=== PATIENT | female | born 1995 | race Caucasian/White ===

== ENCOUNTER → 2016-11-10 | Outpatient (REF) | payer OTHER ==
[~2016-11-10] MED LIST: SEASONAL; miralax
[2016-11-10 20:26] LABS: CONTROL LINE INT CTR LINE PRESENT; HIV SCRN NEGATIVE (NEGATIVE); HIV SCRN1 NEGATIVE (NEGATIVE)
== END ==
LOC: M SFHCPLAZ 11:42
PROVIDERS: ATTEND Nurse Practitioner Family
DX: Z11.3 Encounter for screening for infections with a predominantly sexual mode of transmission (principal)

== ENCOUNTER → 2016-12-15 | Outpatient (REF) | payer OTHER | LOC: M LAB REF 16:16 | PROVIDERS: ATTEND Physician Assistant | DX: H66.93 Otitis media, unspecified, bilateral (principal); J02.9 Acute pharyngitis, unspecified ==

== ENCOUNTER 2017-03-27 17:50 | Emergency (ER) | payer OTHER ==
[~2017-03-27] VITALS: Ht 170.2 cm; Wt 71.4 kg
[2017-03-27] MEDS ORDERED: AMOX500T PO (17:59)
--- NOTE | 2017-03-27 18:40 | REPUSA ---
CT of the head Clinical history: dizziness. Technique: Multiple axial CT images were obtained through the head without administration of contrast . Comparison: 12/20/2009. Findings: The ventricles and sulci are symmetric bilaterally. There is no evidence of acute hemorrhag e or infarct. There is no midline shift, mass effect, or extra-axial fluid collection. The osseous st ructures are unremarkable. The visualized paranasal sinuses and mastoid air cells are clear. Impression: Negative study.
[2017-03-27 18:53] LABS: MEAN CORPUSCULAR HEMOGLOBIN 31.6 pg (27.0-33.0); MEAN CORPUSCULAR HGB CONC 33.6 g/dl (32.0-36.5); MEAN CORPUSCULAR VOLUME 94.2 fl (80.0-96.0); RED CELL DISTRIBUTION WIDTH 11.6 % (11.5-14.5); WHITE BLOOD COUNT 8.8 K/mm3 (4.0-10.0)
[2017-03-27 18:59] LABS: INR 0.94
[2017-03-27 19:03] LABS: ANION GAP 5 MEQ/L (8-16); BLOOD UREA NITROGEN 13 MG/DL (7-18); CALCIUM LEVEL 8.8 MG/DL (8.5-10.1); CARBON DIOXIDE LEVEL 28 MEQ/L (21-32); CHLORIDE LEVEL 103 MEQ/L (98-107); CREATININE FOR GFR 0.87 MG/DL (0.55-1.02); GLOMERULAR FILTRATION RATE > 60.0 (>60); GLUCOSE, FASTING 82 MG/DL (70-105); POTASSIUM SERUM 3.9 MEQ/L (3.5-5.1); SODIUM LEVEL 136 MEQ/L (136-145)
[2017-03-27 19:48] VITALS: BP 116/76
== END 2017-03-27 20:08 | disposition home or self-care (01) ==
LOC: M ED 20:03
DX: H53.9 Unspecified visual disturbance (principal); Z79.3 Long term (current) use of hormonal contraceptives

== ENCOUNTER → 2017-05-31 | Outpatient (CLI) | payer OTHER, MEDICAID ==
[~2017-05-31] MED LIST changes: +AMOX500T PO; +ZOFR4TAB3 PO
--- NOTE | 2017-05-31 19:29 | REP ---
PA and lateral chest: Lung ferreira are clear. Cardiac size is normal. The ariel, mediastinum, bony thorax unremarkable except for thoracic scoliosis. Impression: Negative chest except for thoracic scoliosis. Signed by Charly Romero MD 05/31/2017 07:20 P
[2017-05-31 19:35] LABS: BASO % 0.5 % (0.0-1.0); EOS # 0.3 K/mm3 (0.0-0.50); EOS % 2.8 % (0.0-3.0); LARGE UNSTAINED CELL # 0.3 K/mm3 (0.0-0.4); LARGE UNSTAINED CELL % 2.7 % (0.0-4.0); LYMPH # 4.6 K/mm3 (1.5-6.5); LYMPH % 41.4 % (24.0-44.0); MEAN CORPUSCULAR HEMOGLOBIN 30.8 pg (27.0-33.0); MEAN CORPUSCULAR HGB CONC 33.6 g/dl (32.0-36.5); MEAN CORPUSCULAR VOLUME 91.7 fl (80.0-96.0); MONO # 0.7 K/mm3 (0.0-0.8); MONO % 7.1 % (0.0-5.0); NEUTROPHILS # 4.7 K/mm3 (1.8-7.7); NEUTROPHILS % 45.5 % (36.0-66.0); PLATELET COUNT, AUTOMATED 369 k/mm3 (150-450); RED CELL DISTRIBUTION WIDTH 11.8 % (11.5-14.5); WHITE BLOOD COUNT 10.4 K/mm3 (4.0-10.0)
[2017-05-31 20:10] LABS: ALBUMIN 3.9 GM/DL (3.2-5.2); ALBUMIN/GLOBULIN RATIO 1.11 (1.00-1.93); ALKALINE PHOSPHATASE 56 U/L (45-117); ALT/SGPT 21 U/L (12-78); ANION GAP 6 MEQ/L (8-16); AST/SGOT 14 U/L (15-37); BILIRUBIN,TOTAL 0.3 MG/DL (0.2-1.0); BLOOD UREA NITROGEN 11 MG/DL (7-18); CALCIUM LEVEL 8.5 MG/DL (8.5-10.1); CARBON DIOXIDE LEVEL 29 MEQ/L (21-32); CHLORIDE LEVEL 104 MEQ/L (98-107); CREATININE FOR GFR 0.78 MG/DL (0.55-1.02); GLOMERULAR FILTRATION RATE > 60.0 (>60); GLUCOSE, FASTING 89 MG/DL (70-105); POTASSIUM SERUM 3.8 MEQ/L (3.5-5.1); SODIUM LEVEL 139 MEQ/L (136-145); TOTAL PROTEIN 7.4 GM/DL (6.4-8.2)
== END ==
LOC: M WUC 18:44
PROVIDERS: ATTEND Physician Assistant
DX: R07.89 Other chest pain (principal)

== ENCOUNTER → 2017-06-04 | Outpatient (CLI) | payer OTHER, MEDICAID | LOC: M WUC 13:20 | PROVIDERS: ATTEND Physician Assistant | DX: N91.1 Secondary amenorrhea (principal) ==

== ENCOUNTER 2017-06-06 17:36 | Emergency (ER) | payer MEDICAID, OTHER ==
[~2017-06-06] VITALS: Ht 170.2 cm; Wt 70.5 kg
[~2017-06-06 17:36] MED LIST changes: -ZOFR4TAB3 PO
--- NOTE | 2017-06-06 18:41 | ECGEPIP ---
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
[2017-06-06 19:40] LABS: BASO # 0.1 K/mm3 (0.0-0.2); BASO % 0.6 % (0.0-1.0); EOS # 0.6 K/mm3 (0.0-0.50); EOS % 2.8 % (0.0-3.0); LARGE UNSTAINED CELL # 0.4 K/mm3 (0.0-0.4); LARGE UNSTAINED CELL % 2.1 % (0.0-4.0); LYMPH # 8.6 K/mm3 (1.5-6.5); LYMPH % 42.1 % (24.0-44.0); MEAN CORPUSCULAR HEMOGLOBIN 31.8 pg (27.0-33.0); MEAN CORPUSCULAR HGB CONC 33.6 g/dl (32.0-36.5); MEAN CORPUSCULAR VOLUME 94.5 fl (80.0-96.0); MONO # 1.6 K/mm3 (0.0-0.8); NEUTROPHILS # 8.6 K/mm3 (1.8-7.7); NEUTROPHILS % 44.3 % (36.0-66.0); PLATELET COUNT, AUTOMATED 407 k/mm3 (150-450); RED CELL DISTRIBUTION WIDTH 12.2 % (11.5-14.5); WHITE BLOOD COUNT 19.5 K/mm3 (4.0-10.0)
[2017-06-06] MEDS ORDERED: MORPHINE 2 MG/ML 1ML SYRINGE IV ONE (19:45)
[2017-06-06 19:50] LABS: ANION GAP 9 MEQ/L (8-16); BLOOD UREA NITROGEN 19 MG/DL (7-18); CALCIUM LEVEL 8.6 MG/DL (8.5-10.1); CARBON DIOXIDE LEVEL 28 MEQ/L (21-32); CHLORIDE LEVEL 104 MEQ/L (98-107); CREATININE FOR GFR 0.84 MG/DL (0.55-1.02); GLOMERULAR FILTRATION RATE > 60.0 (>60); GLUCOSE, FASTING 69 MG/DL (70-105); POTASSIUM SERUM 3.7 MEQ/L (3.5-5.1); SODIUM LEVEL 141 MEQ/L (136-145)
[2017-06-06] MEDS ORDERED: NS 1,000 ML IV ONE (20:30)
[2017-06-06] MEDS ORDERED: ISOVUE-370 76% 100ML VIAL (Q9967) As Ordered ONE (21:04)
--- NOTE | 2017-06-06 22:00 | REPUSA ---
CLINICAL HISTORY: Pain. TECHNIQUE: Multiple axial, coronal, sagittal CT images were obtained through the abdomen and pelvis after administration of intravenous contrast material. Oral contrast material was not administered. COMMENTS: The liver is of uniform attenuation without mass or defect. There is no intra or extrahepatic biliar y ductal dilatation. The spleen is normal. The gallbladder is contracted. The pancreas is of deanne l contour and attenuation characteristics. There is no evidence of adrenal mass. Both kidneys demonstrate prompt and equal nephrograms. The kidneys are normal in size, shape and con figuration. There is no evidence of renal or ureteral mass. No renal or ureteral calculi are identi fied. There is no hydroureter or hydronephrosis. No evidence for appendicitis. There is severe circumferential wall thickening involving fluid filled loops of small bowel, all segments involved. This is compatible with enteritis. Infectious and inf lammatory etiologies are considered. Consider consultation with GI service and follow-up with upper endoscopy. No evidence for small or large bowel obstruction. There is no evidence of abdominal asci janice or lymphadenopathy. 3 cm right ovarian cyst is seen and 1.7 cm left ovarian cyst is seen. The uterus is unremarkable. There is no evidence of intrinsic or extrinsic bladder mass. There is no pelvic ascites or lymphaden opathy. Images of the lung bases show no evidence of pleural or parenchymal mass. There are no pleural effus ions. The bony structures are free of lytic or blastic lesions. IMPRESSION: 1. Enteritis. Infectious and inflammatory etiologies are considered. Consider consultation with GI service and follow-up with upper endoscopy. 2. Bilateral ovarian cysts. Consider follow-up with pelvic ultrasound.
[2017-06-06] MEDS ORDERED: ZOFR4TAB3 PO (22:33)
[2017-06-06 22:37] VITALS: BP 132/69
--- NOTE | 2017-06-07 07:27 | REP ---
TWO-VIEW CHEST: REASON: Chest pain. COMPARISON: 05/31/2017 FINDINGS: The superior mediastinal structures are midline. The cardiac silhouette is unremarkable in size, shape, and position. The diaphragmatic surfaces of the lungs are regular, and the costophrenic angles are clear. The pulmonary ferreira are clear. The imaged osseous structures are intact. IMPRESSION: There is no acute cardiopulmonary disease. No change from the prior exam. Signed by Constantin Wade DO 06/07/2017 02:44 P
== END 2017-06-06 22:43 | disposition home or self-care (01) ==
LOC: M ED 17:36
DX: K52.9 Noninfective gastroenteritis and colitis, unspecified (principal); R06.02 Shortness of breath; N83.291 Other ovarian cyst, right side; N83.292 Other ovarian cyst, left side; Z79.3 Long term (current) use of hormonal contraceptives; Z82.49 Family history of ischemic heart disease and other diseases of the circulatory system
CPT/HCPCS: 71020; 74177; 80048; 81001; 81025; 85025; 93000; 96374; 99284; Q9967

== ENCOUNTER → 2017-06-08 | Outpatient (REF) | payer OTHER ==
[~2017-06-08] MED LIST changes: +ZOFR4TAB3 PO
[2017-06-08 13:24] LABS: BASO # 0.1 K/mm3 (0.0-0.2); BASO % 0.5 % (0.0-1.0); EOS # 0.4 K/mm3 (0.0-0.50); EOS % 2.9 % (0.0-3.0); LARGE UNSTAINED CELL # 0.2 K/mm3 (0.0-0.4); LARGE UNSTAINED CELL % 1.8 % (0.0-4.0); LYMPH % 30.4 % (24.0-44.0); MEAN CORPUSCULAR HGB CONC 33.5 g/dl (32.0-36.5); MEAN CORPUSCULAR VOLUME 92.5 fl (80.0-96.0); MONO # 0.6 K/mm3 (0.0-0.8); MONO % 4.9 % (0.0-5.0); NEUTROPHILS # 7.3 K/mm3 (1.8-7.7); NEUTROPHILS % 59.6 % (36.0-66.0); PLATELET COUNT, AUTOMATED 354 k/mm3 (150-450); RED CELL DISTRIBUTION WIDTH 12.1 % (11.5-14.5); WHITE BLOOD COUNT 12.3 K/mm3 (4.0-10.0)
== END ==
LOC: M SFHCPLAZ 10:58
PROVIDERS: ATTEND Family Medicine
DX: N92.6 Irregular menstruation, unspecified (principal)

== ENCOUNTER → 2017-12-21 | Outpatient (REF) | payer BC ==
[2017-12-21 13:57] LABS: CHLAMYDIA DNA AMPLIFICATION NEGATIVE (NEGATIVE); GC DNA AMPLIFICATION NEGATIVE (NEGATIVE)
== END ==
LOC: M SFHCWAGY 11:44
DX: N93.9 Abnormal uterine and vaginal bleeding, unspecified (principal)
CPT/HCPCS: 87591

== ENCOUNTER → 2017-12-27 | Outpatient (CLI) | payer BC | LOC: M WHC 13:52 | DX: Z87.42 Personal history of other diseases of the female genital tract (principal); R10.2 Pelvic and perineal pain ==

== ENCOUNTER 2018-01-10 18:16 | Emergency (ER) | payer BC ==
[2018-01-10] MEDS: ONDANSETRON 4 MG ORAL DISINTEGRATING TAB (S0181) PO (20:15)
[2018-01-10] MEDS: METHOCARBAMOL 500 MG TAB PO (20:15)
[2018-01-10] MEDS: KETOROLAC 60 MG/2 ML VIAL (J1885) IM (20:15)
== END 2018-01-10 20:57 | disposition home or self-care (01) ==
LOC: M ED 18:16
DX: G44.209 Tension-type headache, unspecified, not intractable (principal); S16.1XXA Strain of muscle, fascia and tendon at neck level, initial encounter; X58.XXXA Exposure to other specified factors, initial encounter; Y92.89 Other specified places as the place of occurrence of the external cause; Z79.899 Other long term (current) drug therapy; Z79.82 Long term (current) use of aspirin
CPT/HCPCS: J1885

== ENCOUNTER 2018-01-12 12:26 | Emergency (ER) | payer BC ==
[2018-01-12] MEDS: KETOROLAC TROMETHAMINE 10 MG TAB PO (13:55)
== END 2018-01-12 15:35 | disposition home or self-care (01) ==
LOC: M ED 12:26
DX: R51 Headache (principal); M54.2 Cervicalgia; Z79.899 Other long term (current) drug therapy
CPT/HCPCS: 70450

== ENCOUNTER → 2018-02-18 | Outpatient (REF) | payer BC | LOC: M SFHCWAGY 14:23 | DX: Z12.4 Encounter for screening for malignant neoplasm of cervix (principal); R87.610 Atypical squamous cells of undetermined significance on cytologic smear of cervix (ASC-US) | CPT/HCPCS: G0123 ==

== ENCOUNTER → 2018-02-22 | Outpatient (REF) | payer BC | LOC: M SFHCPLAZ 16:56 | DX: L81.9 Disorder of pigmentation, unspecified (principal) | CPT/HCPCS: 88305 ==

== ENCOUNTER → 2018-09-17 | Outpatient (REF) | payer BC | LOC: M SFHCPLAZ 16:27 | DX: L65.0 Telogen effluvium (principal); Z53.9 Procedure and treatment not carried out, unspecified reason ==

== ENCOUNTER → 2018-10-01 | Outpatient (REF) | payer BC ==
[~2018-10-01] MED LIST changes: +EXCETAB80 PO; +IBUP-1022 PO; +IBUP80TA PO; +MOBI4TAB PO; +PRED20TA PO; +ROBA500T PO; +TRINTAB3 PO; +TYLE325T5 PO; +ZOFR4TAB14 PO; -ZOFR4TAB3 PO
[2018-10-01 13:43] LABS: HEMATOCRIT 41.2 % (36.0-47.0); HEMOGLOBIN 13.5 g/dl (12.0-15.5); MEAN CORPUSCULAR HGB CONC 32.8 g/dl (32.0-36.5); MEAN CORPUSCULAR VOLUME 94.5 fl (80.0-96.0); PLATELET COUNT, AUTOMATED 330 10^3/uL (150-450); RED BLOOD COUNT 4.36 10^6/uL (4.00-5.40); WHITE BLOOD COUNT 8.2 10^3/uL (4.0-10.0)
[2018-10-01 14:05] LABS: ALBUMIN 3.9 GM/DL (3.2-5.2); ALT/SGPT 25 U/L (12-78); BILIRUBIN,TOTAL 0.6 MG/DL (0.2-1.0); BLOOD UREA NITROGEN 12 MG/DL (7-18); CALCIUM LEVEL 8.8 MG/DL (8.5-10.1); CARBON DIOXIDE LEVEL 26 MEQ/L (21-32); CHLORIDE LEVEL 104 MEQ/L (98-107); CREATININE FOR GFR 0.79 MG/DL (0.55-1.30); FERRITIN 21 NG/ML (8-252); FREE T4 0.92 NG/DL (0.76-1.46); GLOMERULAR FILTRATION RATE > 60.0 (>60); GLUCOSE, FASTING 87 MG/DL (70-100); POTASSIUM SERUM 4.5 MEQ/L (3.5-5.1); SODIUM LEVEL 138 MEQ/L (136-145); TOTAL PROTEIN 7.1 GM/DL (6.4-8.2)
== END ==
LOC: M SFHCPLAZ 09:09 → M SFHCADAM 09:10
PROVIDERS: ATTEND Family Medicine
DX: L65.0 Telogen effluvium (principal)

== ENCOUNTER → 2018-12-31 | Outpatient (REF) | payer BC ==
[~2018-12-31] MED LIST changes: +TRINTAB PO; -TRINTAB3 PO
[2018-12-31 13:16] LABS: BASO # 0.1 10^3/uL (0.0-0.2); BASO % 0.7 % (0.0-1.0); EOS # 0.2 10^3/uL (0.0-0.50); EOS % 2.9 % (0.0-3.0); HEMATOCRIT 40.9 % (36.0-47.0); HEMOGLOBIN 13.3 g/dl (12.0-15.5); LYMPH # 2.7 10^3/uL (1.5-6.5); LYMPH % 38.7 % (24.0-44.0); MEAN CORPUSCULAR HGB CONC 32.5 g/dl (32.0-36.5); MEAN CORPUSCULAR VOLUME 95.3 fl (80.0-96.0); MONO # 0.7 10^3/uL (0.0-0.8); MONO % 10.3 % (0.0-5.0); NEUTROPHILS # 3.2 10^3/uL (1.8-7.7); NEUTROPHILS % 47.1 % (36.0-66.0); PLATELET COUNT, AUTOMATED 319 10^3/uL (150-450); RED BLOOD COUNT 4.29 10^6/uL (4.00-5.40); WHITE BLOOD COUNT 6.9 10^3/uL (4.0-10.0)
[2018-12-31 13:59] LABS: ERYTHROCYTE SEDIMENTATION RATE 6 mm/hr (0-20)
[2018-12-31 14:11] LABS: ALBUMIN 4.1 GM/DL (3.2-5.2); ALT/SGPT 17 U/L (12-78); BILIRUBIN,TOTAL 0.4 MG/DL (0.2-1.0); BLOOD UREA NITROGEN 17 MG/DL (7-18); CALCIUM LEVEL 8.5 MG/DL (8.5-10.1); CARBON DIOXIDE LEVEL 22 MEQ/L (21-32); CHLORIDE LEVEL 109 MEQ/L (98-107); CREATININE FOR GFR 0.76 MG/DL (0.55-1.30); GLOMERULAR FILTRATION RATE > 60.0 (>60); GLUCOSE, FASTING 91 MG/DL (70-100); RHEUMATOID FACTOR QUANT < 10.0 IU/ML (<15.0); SODIUM LEVEL 139 MEQ/L (136-145); TOTAL 25(OH) VITAMIN D 34.4 NG/ML (30.0-100.0); TOTAL PROTEIN 7.8 GM/DL (6.4-8.2)
[2019-01-01 11:22] LABS: ANTINUCLEAR ANTIBODIES DIRECT Negative (Negative)
== END ==
LOC: M LABDRWAD 12:20
PROVIDERS: ATTEND Psychiatry & Neurology Neurology
DX: R51 Headache (principal)

== ENCOUNTER 2019-04-12 22:00 | Emergency (ER) | payer BC ==
[~2019-04-12] VITALS: Ht 170.2 cm; Wt 68.2 kg
[2019-04-12] MEDS ORDERED: TOPI200T7 PO (22:04)
[2019-04-12 23:03] VITALS: BP 105/55
[2019-04-12] MEDS ORDERED: NS 1,000 ML IV ONE (23:30)
[2019-04-12 23:35] LABS: HEMATOCRIT 37.9 % (36.0-47.0); HEMOGLOBIN 12.9 g/dl (12.0-15.5); PLATELET COUNT, AUTOMATED 318 10^3/uL (150-450); RED BLOOD COUNT 4.03 10^6/uL (4.00-5.40); WHITE BLOOD COUNT 10.2 10^3/uL (4.0-10.0)
[2019-04-12 23:48] LABS: ALBUMIN 3.6 GM/DL (3.2-5.2); BILIRUBIN,DIRECT 0.1 MG/DL (0.0-0.2); BILIRUBIN,TOTAL 0.3 MG/DL (0.2-1.0); TOTAL PROTEIN 7.2 GM/DL (6.4-8.2)
[2019-04-13] MEDS ORDERED: ONDANSETRON 4MG/2ML VIAL (J2405) IV ONE
[2019-04-13] MEDS ORDERED: KETOROLAC 30 MG/ML VIAL (J1885) IV ONE
[2019-04-13 00:04] LABS: ATYPICAL LYMPH 4 % (0-5); EOSINOPHILS 2 % (0-5); LYMPHOCYTES 49 % (16-52); MONOCYTES 9 % (0-8); NEUTROPHILS 36 % (35-75)
[2019-04-13 00:05] LABS: PLATELET ESTIMATE NORMAL (NORMAL)
--- NOTE | 2019-04-13 00:59 | REPVR ---
EXAM: US Pelvis Complete, Transabdominal and US Pelvis, Transvaginal and US Duplex Artery and Vein, Ovaries, Complete EXAM DATE/TIME: 04/12/2019 12:06 AM CLINICAL HISTORY: 24 years old, female; Pelvic pain; Additional info: Pubic pain cramps and sharp pain during intercourse TECHNIQUE: Imaging protocol: Real-time transabdominal and transvaginal pelvic ultrasound (complete) with image documentation. Transvaginal imaging was used for better evaluation of the endometrium and adnexa. Real-time duplex ultrasound scan of the arterial and venous flow of the ovaries with B-mode, color Doppler flow and spectral waveform analysis. COMPARISON: PELVIS NON-OB COMPLETE US 12/27/2017 2:03 PM FINDINGS: Uterus/cervix: Uterus measures 8.5 x 3.3 x 5 cm. Endometrial stripe is 6 mm. Nabothian cysts. Right adnexa: Right ovary measures 3.2 x 4 x 3.3 cm. There is a 2.4 x 2.7 x 2.8 cm right ovarian cyst containing internal low level echoes. Normal arterial and venous waveforms. Left adnexa: Left ovary measures 3.7 x 2.3 x 3 cm. There is a complex 2 x 2 x 1 cm left ovarian cyst containing internal low level echoes. Normal arterial and venous waveforms. Free fluid: Small amount of free fluid in the pelvis. Bladder: Normal. IMPRESSION: No evidence of ovarian torsion bilaterally. Complex bilateral ovarian cysts with small amount of free fluid in the pelvis. Electronically signed by: Jassi Broussard On 04/13/2019 00:59:26 AM
[2019-04-13] MEDS ORDERED: KETO10TAB PO (01:51)
--- NOTE | 2019-04-14 13:34 | ED PDOC ---
Post-Departure Follow-Up dr haley sanches faxed formal report of pelvic us for fu Jeri Zfaar MD Apr 14, 2019 13:34
== END 2019-04-13 02:04 | disposition home or self-care (01) ==
LOC: M ED 22:00
DX: N83.201 Unspecified ovarian cyst, right side (principal); N83.202 Unspecified ovarian cyst, left side; R10.2 Pelvic and perineal pain; R11.0 Nausea; R51 Headache; Z79.899 Other long term (current) drug therapy
CPT/HCPCS: 36415; 76830; 76856; 80047; 80076; 81001; 83690; 84702; 85025; 93976; 96361; 96374; 96375; 99284; J1885; J2405

== ENCOUNTER → 2019-05-20 | Outpatient (REF) | payer BC ==
[~2019-05-20] MED LIST changes: +KETO10TAB PO; +TOPI200T7 PO
[2019-05-22 14:51] LABS: HPV HYBRID CAPTURE II Negative (Negative)
== END ==
LOC: M SFHCWAGY 11:37
PROVIDERS: ATTEND Nurse Practitioner Family
DX: Z12.4 Encounter for screening for malignant neoplasm of cervix (principal)
CPT/HCPCS: 87624; G0123

== ENCOUNTER → 2019-05-29 | Outpatient (CLI) | payer BC ==
--- NOTE | 2019-05-29 12:14 | REP ---
REASON FOR EXAM: History of bilateral complex appearing ovarian cysts. COMPARISON: 04/13/2019. Transvesical and transvaginal imaging was obtained. The uterus measures 9.3 x 3.1 x 4.4 cm. The parenchymal echo pattern is unchanged from the prior exam. The endometrial echo complex has a maximal thickness of 7 mm. There is fluid in the cervical canal. Incidental note is made of nabothian cysts. The right ovary measures 4.2 x 2.5 x 3.7 cm. Within the right ovary, there is a 2.7 x 1.8 x 2.6 cm size anechoic structure, which is either singularly thinly septated or is abutting a small partially compressed cyst. There are no mural nodules or papillary projections. Left ovary measures 3.8 x 2.0 x 2.6 cm and is within normal limits. Urinary bladder measures 5.6 x9.6 x 5.6 cm. IMPRESSION: 1. Left ovary is now seen to be normal. 2. Right ovarian cyst as described above. This has gotten slightly smaller compared to the prior exam. Consider additional followup.
== END ==
LOC: M WHC 10:29
PROVIDERS: ATTEND Nurse Practitioner Family
DX: N83.201 Unspecified ovarian cyst, right side (principal); N83.202 Unspecified ovarian cyst, left side

== ENCOUNTER 2019-08-25 11:30 | Emergency (ER) | payer BC ==
[~2019-08-25] VITALS: Ht 170.2 cm; Wt 75.0 kg
[2019-08-25] MEDS ORDERED: prenatal (11:35)
[2019-08-25] MEDS ORDERED: NS 1,000 ML IV ONE (12:00)
[2019-08-25] MEDS ORDERED: ONDANSETRON 4MG/2ML VIAL (J2405) IV ONE (12:00)
[2019-08-25] MEDS ORDERED: ONDA4TAB6 PO (13:16)
[2019-08-25 14:22] VITALS: BP 113/64
== END 2019-08-25 14:27 | disposition home or self-care (01) ==
LOC: M ED 11:30
DX: O21.9 Vomiting of pregnancy, unspecified (principal); Z3A.01 Less than 8 weeks gestation of pregnancy
CPT/HCPCS: 80047; 96360; 96374; 99284; J2405

== ENCOUNTER → 2019-09-29 | Outpatient (REF) | payer BC ==
[~2019-09-29] MED LIST changes: +ONDA4TAB6 PO; +prenatal
[2019-09-29 17:41] LABS: HEMATOCRIT 38.9 % (36.0-47.0); MEAN CORPUSCULAR HEMOGLOBIN 30.8 pg (27.0-33.0); MEAN CORPUSCULAR HGB CONC 33.4 g/dl (32.0-36.5); MEAN CORPUSCULAR VOLUME 92.2 fl (80.0-96.0); PLATELET COUNT, AUTOMATED 339 10^3/uL (150-450); RED BLOOD COUNT 4.22 10^6/uL (4.00-5.40)
[2019-09-29 19:11] LABS: CHLAMYDIA DNA AMPLIFICATION NEGATIVE (NEGATIVE); GC DNA AMPLIFICATION NEGATIVE (NEGATIVE)
[2019-09-29 21:28] LABS: HIV 1&2 SCREEN CENTAUR NEGATIVE (NEGATIVE); RUBELLA IgG QUALITATIVE IMMUNE (IMMUNE)
[2019-10-01 13:31] LABS: HEPATITIS B SURFACE ANTIGEN NEGATIVE (NEGATIVE); HEPATITIS C VIRUS ABY INDEX 0.2 INDEX (<0.8)
== END ==
LOC: M PLALAB 15:18
PROVIDERS: ATTEND Advanced Practice Midwife
DX: Z33.1 Pregnant state, incidental (principal)

== ENCOUNTER → 2019-11-18 | Outpatient (CLI) | payer BC ==
--- NOTE | 2019-11-19 05:27 | REP ---
Clinical: Anatomical evaluation. Comparison: None . Findings: Examination demonstrates a single live intrauterine in cephalic presentation. motion is identified by technologist. Placenta is noted posterior and grade zero without evidence for placenta previa or abruption. Amniotic fluid volume is normal. Cervix measures 3.2 cm in length and appears closed. No evidence for nuchal cord. Gestational age by current measurements 18 weeks 4 days with JULIO CÉSAR 04/16/2020 . FHR equals 135 beats per minute. BPD 4.4 cm 19 weeks 2 days HC 15.9 cm 18 weeks 5 days AC 12.3 cm 18 weeks 0 days FL 2.9 cm 18 weeks 6 days HL 2.8 cm 19 weeks 0 days HC/AC ratio 1.29 Estimated weight 241 grams ( 40th percentile). Anatomical assessment demonstrates normal structures including cranium, choroid plexus, cavum, cerebellum/posterior fossa, lungs, four-chamber heart/ left ventricular outflow tract, diaphragm, stomach, cord insertion/three-vessel cord, kidneys/bladder, spine, and extremities. Impression: 1. Single live intrauterine in cephalic presentation. 2. Limited evaluation of the facial features and right cardiac ventricular outflow tract. Remainder of the anatomical assessment is complete and normal.
== END ==
LOC: M WHC 09:57
PROVIDERS: ATTEND Advanced Practice Midwife
DX: Z34.82 Encounter for supervision of other normal pregnancy, second trimester (principal)

== ENCOUNTER → 2019-12-17 | Outpatient (REF) | payer BC | LOC: M PLALAB 11:35 | PROVIDERS: ATTEND Obstetrics & Gynecology | DX: Z34.92 Encounter for supervision of normal pregnancy, unspecified, second trimester (principal) ==

== ENCOUNTER → 2020-01-01 | Outpatient (CLI) | payer BC ==
--- NOTE | 2020-01-01 19:52 | REP ---
Clinical: Anatomical evaluation. Comparison: 11/18/2019 . Findings: Examination demonstrates a single live intrauterine in cephalic presentation. motion is identified by technologist. Placenta is noted posterior and grade I without evidence for placenta previa or abruption. Amniotic fluid volume is normal. Cervix measures 3.7 cm in length and appears closed. No evidence for nuchal cord. Gestational age by LMP 24 weeks 6 days with JULIO CÉSAR 04/16/2020 . Gestational age by current measurements 25 weeks 6 days with JULIO CÉSAR 04/23/2020 . FHR equals 134 beats per minute. Estimated weight 955 grams ( 94th percentile). Anatomical assessment demonstrates normal structures including cranium, choroid plexus, cavum, cerebellum/posterior fossa, facial features, lungs, four-chamber heart/ventricular outflow tracts, diaphragm, stomach, cord insertion/three-vessel cord, kidneys/bladder, spine, and extremities. Impression: Single live intrauterine in cephalic presentation demonstrating appropriate interval growth. Anatomical assessment is complete and normal. No gross abnormalities are identified. Electronically Signed by Stalin Mariscal MD 01/01/2020 07:44 P
== END ==
LOC: M WHC 08:57
PROVIDERS: ATTEND Obstetrics & Gynecology
DX: Z34.92 Encounter for supervision of normal pregnancy, unspecified, second trimester (principal)

== ENCOUNTER → 2020-01-16 | Outpatient (REF) | payer BC ==
[2020-01-16 17:50] LABS: HEMATOCRIT 36.7 % (36.0-47.0); HEMOGLOBIN 12.1 g/dl (12.0-15.5); MEAN CORPUSCULAR HEMOGLOBIN 31.3 pg (27.0-33.0); MEAN CORPUSCULAR VOLUME 95.1 fl (80.0-96.0); PLATELET COUNT, AUTOMATED 315 10^3/uL (150-450); RED BLOOD COUNT 3.86 10^6/uL (4.00-5.40); WHITE BLOOD COUNT 15.6 10^3/uL (4.0-10.0)
== END ==
LOC: M PLALAB 14:37
PROVIDERS: ATTEND Obstetrics & Gynecology
DX: Z34.92 Encounter for supervision of normal pregnancy, unspecified, second trimester (principal); Z3A.00 Weeks of gestation of pregnancy not specified

== ENCOUNTER → 2020-03-24 | Outpatient (REF) | payer BC | LOC: M PLALAB 09:42 | PROVIDERS: ATTEND Advanced Practice Midwife | DX: O99.213 Obesity complicating pregnancy, third trimester (principal) ==

== ENCOUNTER → 2020-03-30 | Outpatient (CLI) | payer BC ==
--- NOTE | 2020-03-30 10:02 | REP ---
Clinical: Anatomical evaluation. Comparison: 01/01/2020. Findings: Examination demonstrates a single live intrauterine in cephalic presentation. motion is identified by technologist. Placenta is noted the posterior and grade I I without evidence for placenta previa or abruption. Amniotic fluid volume is normal. Cervix measures 3.3 cm in length and appears closed. No evidence for nuchal cord. Gestational age by LMP 37 weeks 4 days with JULIO CÉSAR 04/16/2020 . Gestational age by current measurements 38 weeks 5 days with JULIO CÉSAR 04/08/2020 . FHR equals 143 beats per minute. Estimated weight by current biometrical measurements 3689 grams ( 82nd percentile). Amniotic fluid index: 10.3 cm Impression: Single live advanced gestation in cephalic presentation demonstrating appropriate estimated weight and interval growth.
== END ==
LOC: M WHC 09:04
PROVIDERS: ATTEND Advanced Practice Midwife
DX: O26.849 Uterine size-date discrepancy, unspecified trimester (principal)

== ENCOUNTER → 2020-04-12 | Outpatient (REF) | payer BC ==
[~2020-04-12] MED LIST changes: +MIRA3350 PO; +OXYC1TAB23 PO; +ZYRTTAB8 PO
[2020-04-12 15:57] LABS: ALT/SGPT 23 U/L (12-78); BILIRUBIN,TOTAL 0.4 MG/DL (0.2-1.0); CREATININE FOR GFR 0.62 MG/DL (0.55-1.30); GLOMERULAR FILTRATION RATE > 60.0 (>60); LDH LACTATE DEHYDROGENASE 223 U/L (84-246); URIC ACID 3.8 MG/DL (2.6-6.0)
[2020-04-12 16:00] LABS: HEMATOCRIT 34.5 % (36.0-47.0); HEMOGLOBIN 11.1 g/dl (12.0-15.5); MEAN CORPUSCULAR HEMOGLOBIN 30.2 pg (27.0-33.0); MEAN CORPUSCULAR HGB CONC 32.2 g/dl (32.0-36.5); PLATELET COUNT, AUTOMATED 469 10^3/uL (150-450); RED BLOOD COUNT 3.67 10^6/uL (4.00-5.40); WHITE BLOOD COUNT 15.2 10^3/uL (4.0-10.0)
[2020-04-12 16:13] LABS: TOTAL PROTEIN,RANDOM URINE 22.1 MG/DL (0.0-12.0)
== END ==
LOC: M PLALAB 11:51
PROVIDERS: ATTEND Advanced Practice Midwife
DX: O13.3 Gestational [pregnancy-induced] hypertension without significant proteinuria, third trimester (principal); Z3A.00 Weeks of gestation of pregnancy not specified

== ENCOUNTER 2020-04-16 09:48 | Inpatient (IN) | payer BC ==
[~2020-04-16] VITALS: Ht 170.2 cm; Wt 95.1 kg
[2020-04-16] VITALS (8 sets, daily range): BP systolic 114–133; BP diastolic 58–91
[~2020-04-16 09:48] MED LIST changes: -MIRA3350 PO; -OXYC1TAB23 PO; -ZYRTTAB8 PO
[2020-04-16] MEDS ORDERED: MIRA3350 PO (10:14)
[2020-04-16] MEDS ORDERED: ZYRTTAB8 PO (10:14)
[2020-04-16] MEDS ORDERED: LACTATED RINGER'S 1000 ML IV STA (10:33)
[2020-04-16 11:09] LABS: HEMATOCRIT 35.2 % (36.0-47.0); HEMOGLOBIN 11.5 g/dl (12.0-15.5); MEAN CORPUSCULAR HGB CONC 32.7 g/dl (32.0-36.5); MEAN CORPUSCULAR VOLUME 91.9 fl (80.0-96.0); PLATELET COUNT, AUTOMATED 455 10^3/uL (150-450); RED BLOOD COUNT 3.83 10^6/uL (4.00-5.40); WHITE BLOOD COUNT 17.8 10^3/uL (4.0-10.0)
--- NOTE | 2020-04-16 11:26 | HPEPDOC ---
Obstetrical History & Physical General Date of Admission Apr 16, 2020 at 09:48 History of Present Illness Chief Complaint: Induction of labor (Gestational hypertension) Information Provided By: Patient Age: 25 : 1 Term: 0 Pre-term: 0 Abortions: 0 Livin Dating Final EDC: Apr 19, 2020 Final EDC by: LMP EGA at Admission: 39 (+4) Antepartum Course Height (inches): 66 Pre- weight (lbs.): 166 Admission Weight (lbs.): 211.4 Past Medical History Past Obstetrical History : Past Obstetrical History: Primgravida FO[employer] CHECKER History: Abnormal Pap, Human papillomavirus(HPV) Past Medical History Medical History mono, headaches Surgical History: Tonsilectomy, Simon teeth Family History Significant Family History: Cancer (uterine, colon, melanoma), Diabetes, Heart disease, Renal disease Social History Marital Status: Other (life partner) Family situation: Spouse/partner home Psychosocial History: No pertinent psych hx * Smoker: non-smoker Alcohol: Denies Drugs: denies Abuse Violence Screening Have you been hit/kicked/slapp: No Have you been sexually assault: No Imunizations Tdap status: current Allergies Coded Allergies: latex (Verified Adverse Reaction, Mild, redness, itchiness, condoms, 04/16/20) Medications Scheduled Cetirizine HCl/Pseudoephedrine (Zyrtec-D Tablet) 1 Each Tab.er.12h, 1 TAB PO DAILY for allergy symptoms Polyethylene Glycol 3350 (Miralax) 119 Gm Powder, 17 GRAM PO DAILY for constipation dissolve in water Scheduled PRN Ondansetron (Ondansetron Odt) 4 Mg Tab.rapdis, 4 MG PO Q6-8HP PRN for nausea/vomiting Miscellaneous Medications [] Physical Examination Physical Examination GENERAL: Alert and oriented times three. BREAST: . ABDOMEN: Gravid and non-tender to touch. FETUS: Is vertex (VTX) by sterile vaginal examination (SVE), fetus is vertex (VTX) by Phan. EFW 8.5-9# HEART RATE: Regular rate and rhythm. LUNGS: Clear to auscultation (CTA). EXTREMITIES: No edema. No clonus. Deep tendon reflexes (DTRs) + 2. Laboratory Data 24H LABS Laboratory Tests 2 04/16/20 09:56: Serology Scanned Report Hepatitis B Testing Pertinent Laboratoy Data Blood Type: A+ RBC Antibody Screen: Negative HIV: Negative Hepatitis B: Negative Hepatitis C: Negative Rapid Plasma Reagin: Nonreactive Rubella: Immune Chlamydia/Gonorrhea: Negative Group B Streptococcus: Negative Quad Screen Test: Declined Glucose Tolerance Test: 95 Diag/Inter Therapy Panorama low risk male Anatomy Ultrasound Ultrasound Date: Nov 18, 2019 Placenta Location: Posterior Normal Anatomy: Yes Placenta Previa: No Estimated Weight (grams): 241 (40%) Other Ultrasounds 09/01/2019 dating 7w5d 01/01/2020 F/U anatomy. remainder anatomy WNL. EFW 955gm, 94% 03/30/2020 growth Cephalic. EFW 3689gm, 82%. TATO 10.3cm Steroid Therapy Steroid Therapy: No Vaginal Examination Dilation: Fingertip Effacement: 50% Station: -2 Cervical Consistency: Soft Cervical Position: Posterior Presentation: Cephalic presentation Assessment Heart Rate (FHR): 145 Variability: Moderate Accelerations: Positive Decelerations: None Tocometer Frequency: irregular Strength: palpated as mild (not regularly perceived by patient) Assessment/Plan Assessment Monica is a 25-year-old (G)1 para (P)0-0-0-0 at 39+4 weeks by 7-week ultrasound. Presents to Labor and Delivery (L&D) induction of labor due to gestational hypertension. Reports mild irregular contractions. Denies LOF, bleeding. Reports good activity. Plan Admit and orient per consult Dr Munoz Lockstitch Sleeve Maker and consent. Diet: Regular. Group B Streptococcus (GBS) negative. Labs and intravenous (IV) per unit protocol. Counseled on misoprostol, Pitocin and induction of labor (IOL). Lactated Ringers (LR): Bolus 500 mL, then saline lock. Plans to labor ad abbie, open to epidural. Anticipate normal spontaneous delivery (). C-S as appropriate. Elisa Andre CNM Apr 16, 2020 10:33
[2020-04-16] MEDS: ONDANSETRON 4MG/2ML VIAL IV SCH (11:38)
[2020-04-16] MEDS: miSOPROStol 50 MCG 1/2 TAB (S0191) PO SCH ×3 (11:38→19:58)
[2020-04-16 12:05] LABS: ALT/SGPT 23 U/L (12-78); BILIRUBIN,TOTAL 0.3 MG/DL (0.2-1.0); CREATININE FOR GFR 0.64 MG/DL (0.55-1.30); GLOMERULAR FILTRATION RATE > 60.0 (>60); LDH LACTATE DEHYDROGENASE 291 U/L (84-246); URIC ACID 4.4 MG/DL (2.6-6.0)
[2020-04-16] MEDS ORDERED: hydrOXYzine 50 MG TAB PO SCH (21:00)
--- NOTE | 2020-04-16 23:20 | IPNPDOC ---
Text Note Date of Service The patient was seen on 04/16/20. NOTE Progress SROM 2250 copious amount thin meconium stained fluid FH 145, Cat I, fetus very active UC irregular, mild to palpation SVE /-2, posterior Attempted to place Cook's catheter with speculum. Unable due to large amount of fluid filling vagina Attempted to place Cook's catheter digitally, unable due to maternal guarding and posterior position. Will obtain epidural and attempt insertion at that time. Then augment with pitocin VS,Fishbone, I+O VS, Fishbone, I+O Laboratory Tests 04/16/20 10:55 Vital Signs Date Time Temp Pulse Resp B/P (MAP) Pulse Ox O2 Delivery O2 Flow Rate FiO2 04/16/20 19:59 98.0 04/16/20 17:57 68 18 126/81 (96) 04/16/20 16:32 Room Air 04/16/20 10:18 97 Elisa Andre CNM Apr 16, 2020 23:20
[2020-04-16] MEDS: LR 1,000 ML IV SCH (23:27)
[2020-04-16] MEDS ORDERED: OXYTOCIN DRIP 30 UNITS in IV 1 EA IV SCH (23:30)
[2020-04-16] MEDS ORDERED: FENTANYL 2MCG/ML ROPIVACAINE 0.2% IN 0.9% NACL 100ML IVBAG As Ordered ONE (23:35)
[2020-04-17] VITALS (40 sets, daily range): BP systolic 89–169; BP diastolic 52–136
--- NOTE | 2020-04-17 00:47 | IPNPDOC ---
Text Note Date of Service The patient was seen on 04/17/20. NOTE Progress Comfortable with epidural Cat I tracing, irregular UC SVE /-2 Cooks catheter placed, inflated with 60/40cc NS Large amount thin meconium stained fluid continues to drain PV Start pitocin. VS,Fishbone, I+O VS, Fishbone, I+O Laboratory Tests 04/16/20 10:55 Vital Signs Date Time Temp Pulse Resp B/P (MAP) Pulse Ox O2 Delivery O2 Flow Rate FiO2 04/16/20 19:59 98.0 04/16/20 17:57 68 18 126/81 (96) 04/16/20 16:32 Room Air 04/16/20 10:18 97 I&O- Last 24 Hours up to 6 AM 04/17/20 06:00 Intake Total 1500 ml Output Total 920 ml Balance 580 ml Elisa Andre CNM Apr 17, 2020 00:47
[2020-04-17] MEDS ORDERED: ONDANSETRON 4MG/2ML VIAL IV PRN ×4 (01:30→13:30)
[2020-04-17] MEDS ORDERED: FENTANYL/ROPIVACAINE/NACL BAG 100 ML EPIDURAL SCH (01:30)
[2020-04-17] MEDS ORDERED: NALOXONE INJ 0.4MG/1ML VIAL (J2310 PER 1MG) IV PRN ×3 (01:30→13:00)
[2020-04-17] MEDS ORDERED: ePHEDrine SULFATE 25 MG/5 ML(5MG/ML) SYRINGE IV PRN (01:30)
[2020-04-17] MEDS ORDERED: LACTATED RINGER'S 1000 ML IV PRN (01:30)
[2020-04-17] MEDS ORDERED: REFRIGERATOR IV KEYS XX PRN (01:30)
[2020-04-17] MEDS ORDERED: EPIDURAL COMMENT XX SCH (01:30)
[2020-04-17] MEDS ORDERED: diphenhydrAMINE 50MG/ML VIAL (J1200) IV PRN ×2 (01:30→13:00)
[2020-04-17] MEDS ORDERED: EPIDURAL/PCA KEYS XX PRN (01:30)
--- NOTE | 2020-04-17 05:47 | IPNPDOC ---
Text Note Date of Service The patient was seen on 04/17/20. NOTE Progress Comfortable with epidural VSS UC 2-4minutes apart Cat I tracing with episodes of Cat II. Decel to 90's at 0130, resolved with IV fluid, position change and O2 Pitocin @ 4mu Cooks catheter in vagina. SVE 7/100/0 Thin meconium stained fluid persists. Will update physician VSLupis, I+O VS, Lupis, I+O Laboratory Tests 04/16/20 10:55 Vital Signs Date Time Temp Pulse Resp B/P (MAP) Pulse Ox O2 Delivery O2 Flow Rate FiO2 04/17/20 01:44 88 18 113/65 (81) 04/17/20 01:17 97.0 04/16/20 16:32 Room Air 04/16/20 10:18 97 I&O- Last 24 Hours up to 6 AM 04/17/20 06:00 Intake Total 2500 ml Output Total 3070 ml Balance -570 ml Elisa Andre CNM Apr 17, 2020 05:47
[2020-04-17] MEDS: ONDANSETRON 4MG/2ML VIAL IV SCH (06:02)
[2020-04-17] MEDS ORDERED: ceFAZolin SOD 2 GM in IV 1 EA IV ONE (12:00)
[2020-04-17] MEDS ORDERED: BICITRA 30ML SOLN UDC PO ONE (12:00)
[2020-04-17] MEDS ORDERED: AZITHROMYCIN INJ 500 MG, VIAL MATE ADAPTER 1 EACH in D5W 250 ML IV ONE (12:00)
[2020-04-17] MEDS: LR 1,000 ML IV SCH ×3 (12:18→19:22)
[2020-04-17] MEDS ORDERED: ONDANSETRON 4MG/2ML VIAL As Ordered ONE (12:45)
[2020-04-17] MEDS ORDERED: OXYTOCIN INJ 10 UNITS/ML VIAL (J2590) As Ordered ONE (12:45)
[2020-04-17] MEDS ORDERED: PHENYLephrine HCL 500 MCG/5 ML (100MCG/ML) SYRINGE (J2370) As Ordered ONE (12:45)
[2020-04-17] MEDS ORDERED: dexameTHASONE 4 MG/ML 1ML VIAL (J1100 PER 1MG) As Ordered ONE ×2 (12:45→12:52)
[2020-04-17] MEDS ORDERED: MORPHINE PRES-FREE INJ 10 MG/10 ML VIAL (J2274) As Ordered ONE (12:46)
[2020-04-17] MEDS ORDERED: KETOROLAC 60MG 2ML VIAL As Ordered ONE (12:46)
[2020-04-17] MEDS ORDERED: METOCLOPRAMIDE INJ 10MG/2ML VIAL (J2765 PER 1) As Ordered ONE (12:52)
[2020-04-17] MEDS ORDERED: METOCLOPRAMIDE INJ 10MG/2ML VIAL (J2765 PER 1) IV PRN (13:00)
[2020-04-17] MEDS ORDERED: PERCOCET 5MG/325MG TAB PO PRN (13:15)
[2020-04-17] MEDS ORDERED: DOCUSATE SODIUM 100 MG CAP PO PRN (13:15)
[2020-04-17] MEDS ORDERED: RHOGAM 300 MCG (1500 IU) INJ (J2790) IM SCH (13:15)
[2020-04-17] MEDS ORDERED: MEASLES,MUMPS,RUBELLA VACCINE INJ (MMR-II) (90707) SC SCH (13:15)
[2020-04-17] MEDS ORDERED: OXYTOCIN 30 UNITS IN 0.9% NaCl 500ML IV BAG (J2590) As Ordered ONE (13:19)
[2020-04-17] MEDS ORDERED: OXYTOCIN DRIP 30 UNITS in IV 1 EA IV SCH (13:30)
[2020-04-17] MEDS ORDERED: fentaNYL 100 MCG/2 ML INJECTION (J3010) IV PRN (13:30)
[2020-04-17] MEDS ORDERED: MEPERIDINE INJ 25 MG/ML VIAL (J2175) IV PRN (13:30)
[2020-04-17] MEDS ORDERED: LR 1,000 ML IV SCH (13:30)
[2020-04-17] MEDS: KETOROLAC 30 MG/ML 1ML VIAL IV SCH (18:00)
[2020-04-17] MEDS ORDERED: OXYC1TAB23 PO (21:33)
[2020-04-17] MEDS ORDERED: IBUP80TA PO (21:35)
[2020-04-18] MEDS: KETOROLAC 30 MG/ML 1ML VIAL IV SCH ×2 (00:07→05:49)
[2020-04-18 02:00] VITALS: BP 110/68
[2020-04-18 06:00] VITALS: BP 102/58
[2020-04-18 08:51] LABS: HEMOGLOBIN 9.6 g/dl (12.0-15.5); MEAN CORPUSCULAR HEMOGLOBIN 30.7 pg (27.0-33.0); MEAN CORPUSCULAR HGB CONC 33.1 g/dl (32.0-36.5); MEAN CORPUSCULAR VOLUME 92.7 fl (80.0-96.0); PLATELET COUNT, AUTOMATED 393 10^3/uL (150-450); RED BLOOD COUNT 3.13 10^6/uL (4.00-5.40); WHITE BLOOD COUNT 27.3 10^3/uL (4.0-10.0)
[2020-04-18] MEDS: PRENATAL VITAMINS CHEWABLE TABLET PO SCH (08:59)
[2020-04-18 10:00] VITALS: BP 98/56
[2020-04-18] MEDS: PERCOCET 5MG/325MG TAB PO PRN (11:05)
[2020-04-18 14:10] VITALS: BP 114/62
[2020-04-18] MEDS: IBUPROFEN 800 MG TAB PO SCH ×2 (14:14→22:02)
[2020-04-18 18:00] VITALS: BP 118/68
[2020-04-18 22:00] VITALS: BP 131/67
[2020-04-19 02:00] VITALS: BP 118/68
[2020-04-19] MEDS: IBUPROFEN 800 MG TAB PO SCH (05:31)
[2020-04-19 06:00] VITALS: BP 120/79
[2020-04-19] MEDS: PRENATAL VITAMINS CHEWABLE TABLET PO SCH (08:33)
[2020-04-19] MEDS: PERCOCET 5MG/325MG TAB PO PRN ×2 (08:33→12:24)
[2020-04-19 10:05] VITALS: BP 122/87
--- NOTE | 2020-04-26 13:01 | RO ---
DATE OF PROCEDURE: 04/17/2020 PREPROCEDURE DIAGNOSIS: 40 weeks gestation. Arrest of descent. POSTPROCEDURE DIAGNOSIS: 40 weeks gestation. Arrest of descent. PROCEDURE: Primary low transverse section. SURGEON: Nash Munoz MD SYSTEM ADMINISTRATION ADVISOR: Vero Romero MD ANESTHESIA: Epidural. ESTIMATED BLOOD LOSS: 500 mL. URINE OUTPUT: 150 mL. FINDINGS: 9 pound 9 ounce, 4330 gram, male , Apgars 7 and 9, occiput anterior position, meconium present. Normal uterus, fallopian tubes and ovaries. DESCRIPTION OF PROCEDURE: The patient was taken to the operating room where epidural anesthesia was adequate. She was prepped and draped in sterile fashion in the supine position. A Rousseau catheter was already in place. A Pfannenstiel skin incision was made with the scalpel and carried through to the fascia. The fascia was nicked and extended. The peritoneal cavity was entered. A bladder flap was created. A Mobius retractor was placed. A curvilinear incision was made in the lower uterine segment until meconium stained fluid was noted. This was extended manually. The infant was delivered from the vertex position without difficulty. The cord was doubly clamped and cut. The was handed off to the awaiting nurse. The placenta was expressed. The uterus was closed with #0 Vicryl in a running locked fashion. A second imbricating layer of #0 Vicryl was placed. The Mobius retractor was removed. The peritoneum was closed with #2-0 Vicryl in a running fashion. The fascia was closed with #0 Vicryl in a running fashion. The deep layer was irrigated and the skin was closed with #4-0 Monocryl subcuticular sutures. Sponge, instrument and needle counts were correct.
--- NOTE | 2020-04-27 21:22 | DSES ---
DATE OF ADMISSION: 04/16/2020 DATE OF DISCHARGE: 04/19/2020 25-year-old [place] 1 (G1) at 39 4/7 weeks gestation presents for labor induction due to gestational hypertension. was otherwise unremarkable. Medical history is unremarkable. HOSPITAL COURSE: The patient was admitted on 04/16/2020. Induction was initiated with misoprostol. She made slow, but adequate progress in labor. She eventually passed her second stage of labor after 2 1/2 hours second stage, she was diagnosed with arrest of descent. The decision was made to perform section. On 04/17/2020, the patient delivered a 9 pound, 9 ounce infant without complication. Her postoperative course was unremarkable. She had adequate return of bladder and bowel function. Her postoperative hemoglobin was 9.6 g/dl . She was deemed stable for discharge on postoperative day 2. ADMISSION DIAGNOSIS: 1. , term. 2. Gestational hypertension. DISCHARGE DIAGNOSIS: 1. Delivered. PROCEDURE: Primary section. DISPOSITION: The patient is to followup with Dr. Munoz in two weeks. Instructions were reviewed.
== END 2020-04-19 13:00 | disposition home or self-care (01) | DRG 540 ==
LOC: M LDI 09:48 → M OBS 04-17 14:55
PROVIDERS: ADMIT Advanced Practice Midwife; ATTEND Advanced Practice Midwife
PROC: 3E033VJ Introduction of Other Hormone into Peripheral Vein, Percutaneous Approach (ICD-10-PCS; 2020-04-16)
PROC: 3E0DXGC Introduction of Other Therapeutic Substance into Mouth and Pharynx, External Approach (ICD-10-PCS; 2020-04-16)
PROC: 10D00Z1 Extraction of Products of Conception, Low, Open Approach (ICD-10-PCS; principal; 2020-04-17 12:30)
DX: O13.4 Gestational [pregnancy-induced] hypertension without significant proteinuria, complicating childbirth (principal); Z37.0 Single live birth; Z3A.39 39 weeks gestation of pregnancy; O77.0 Labor and delivery complicated by meconium in amniotic fluid; O32.4XX0 Maternal care for high head at term, not applicable or unspecified

== ENCOUNTER → 2020-12-17 | Outpatient (REF) | payer OTHER, SELFPAY ==
[~2020-12-17] MED LIST changes: +MIRA3350 PO; +MULTTAB20 PO; +OXYC1TAB23 PO; +REGL10TA6 PO; +ZYRTTAB8 PO
[2020-12-17 17:31] LABS: HEMATOCRIT 38.9 % (36.0-47.0); HEMOGLOBIN 12.8 g/dl (12.0-15.5); MEAN CORPUSCULAR HGB CONC 32.9 g/dl (32.0-36.5); MEAN CORPUSCULAR VOLUME 91.1 fl (80.0-96.0); PLATELET COUNT, AUTOMATED 373 10^3/uL (150-450); RED BLOOD COUNT 4.27 10^6/uL (4.00-5.40); WHITE BLOOD COUNT 12.1 10^3/uL (4.0-10.0)
[2020-12-17 18:40] LABS: HEPATITIS C VIRUS ABY INDEX < 0.0 INDEX (<0.8); HIV 1&2 SCREEN CENTAUR NEGATIVE (NEGATIVE)
== END ==
LOC: M PLALAB 15:51
PROVIDERS: ATTEND Advanced Practice Midwife
DX: O34.211 Maternal care for low transverse scar from previous cesarean delivery (principal); Z3A.00 Weeks of gestation of pregnancy not specified

== ENCOUNTER 2020-12-23 15:54 | Emergency (ER) | payer OTHER, SELFPAY ==
[~2020-12-23] VITALS: Ht 170.2 cm; Wt 79.7 kg
[~2020-12-23 15:54] MED LIST changes: -MULTTAB20 PO; -REGL10TA6 PO
[2020-12-23] MEDS ORDERED: MULTTAB20 PO (16:10)
[2020-12-23] MEDS ORDERED: REGL10TA6 PO (16:10)
[2020-12-23] MEDS ORDERED: D5W/0.9% SODIUM CHLORIDE 1,000 ML IV ONE (17:00)
[2020-12-23] MEDS ORDERED: NS 1,000 ML IV ONE (17:00)
[2020-12-23] MEDS ORDERED: METOCLOPRAMIDE INJ 10MG/2ML VIAL (J2765 PER 1) IV ONE (17:00)
[2020-12-23] MEDS ORDERED: ONDANSETRON 4MG/2ML VIAL IV ONE (17:00)
[2020-12-23 18:43] VITALS: BP 112/59
== END 2020-12-23 18:44 | disposition home or self-care (01) ==
LOC: M ED 15:54
DX: O21.9 Vomiting of pregnancy, unspecified (principal); Z3A.08 8 weeks gestation of pregnancy; Z79.899 Other long term (current) drug therapy
CPT/HCPCS: 80047; 96361; 96374; 96375; 99283; J2405; J2765

== ENCOUNTER → 2021-01-17 | Outpatient (CLI) | payer OTHER ==
[~2021-01-17] MED LIST changes: +MULTTAB20 PO; +REGL10TA6 PO
== END ==
LOC: M PLALAB 12:29
PROVIDERS: ATTEND Specialist
DX: Z34.81 Encounter for supervision of other normal pregnancy, first trimester (principal)

== ENCOUNTER → 2021-01-17 | Outpatient (REF) | payer OTHER, SELFPAY | LOC: M SFHCWAGY 13:22 | PROVIDERS: ATTEND Advanced Practice Midwife | DX: O34.211 Maternal care for low transverse scar from previous cesarean delivery (principal) ==

== ENCOUNTER → 2021-03-04 | Outpatient (CLI) | payer OTHER ==
--- NOTE | 2021-03-04 14:40 | REP ---
INDICATION: ANATOMY. JULIO CÉSAR 05 August 2021. COMPARISON: None. TECHNIQUE: Transabdominal obstetric sonography. FINDINGS: Scanning through the gravid uterus demonstrates a viable single intrauterine gestation in breech lie. motion is observed and heart rate is recorded at 150 beats per minute. A posterior placenta is seen, grade 0, without evidence of placenta previa. Closed cervical length is measured at cm transabdominally. No extrauterine abnormality is observed. Amniotic fluid is subjectively normal. Small choroid plexus cysts are observed bilaterally. No other anomaly is seen. The following anatomic structures are identified and felt to be sonographically unremarkable: cranium, choroid plexus, cavum, cerebellum and posterior fossa, face and profile, lungs, four-chamber heart with left and right ventricular outflow tract views, diaphragm, left-sided stomach, abdominal wall cord insertion, three-vessel umbilical cord, kidneys and bladder, spine, and upper and lower extremities. Biometry chart: BPD 4.1 cm, 18 weeks 3 days Head circumference 15.7 cm, 18 weeks 4 days Abdominal circumference 12.7 cm, 18 weeks 2 days Femur length 2.9 cm, 18 weeks 5 days Humeral length 3.1 cm, 20 weeks 0 days HC AC ratio normal 1.24 Cephalic index normal 0.71 Estimated weight 245 g, 0 lb 8 oz, 78th percentile for 18 weeks 0 days IMPRESSION: Viable single intrauterine gestation at 18 weeks 6 days by today's composite sonographic criteria. JULIO CÉSAR by today's sonography 30 July 2021.. No complication identified. Expected gestational age estimate based on given JULIO CÉSAR is 18 weeks 0 days, JULIO CÉSAR 05 August 2021. Small bilateral choroid plexus cysts. <Electronically signed by Blaine Ocampo > 03/04/21 [id number]
== END ==
LOC: M WHC 13:18
PROVIDERS: ATTEND Advanced Practice Midwife
DX: Z34.82 Encounter for supervision of other normal pregnancy, second trimester (principal)

== ENCOUNTER → 2021-04-21 | Outpatient (REF) | payer OTHER ==
[2021-04-21 15:17] LABS: GC DNA AMPLIFICATION NEGATIVE (NEGATIVE)
== END ==
LOC: M SFHCWAGY 12:56
PROVIDERS: ATTEND Advanced Practice Midwife
DX: O34.211 Maternal care for low transverse scar from previous cesarean delivery (principal)

== ENCOUNTER → 2021-05-19 | Outpatient (CLI) | payer OTHER ==
[2021-05-19 11:06] LABS: HEMATOCRIT 34.9 % (36.0-47.0); HEMOGLOBIN 11.5 g/dl (12.0-15.5); MEAN CORPUSCULAR HEMOGLOBIN 31.5 pg (27.0-33.0); MEAN CORPUSCULAR VOLUME 95.6 fl (80.0-96.0); PLATELET COUNT, AUTOMATED 311 10^3/uL (150-450); RED BLOOD COUNT 3.65 10^6/uL (4.00-5.40); WHITE BLOOD COUNT 15.2 10^3/uL (4.0-10.0)
== END ==
LOC: M PLALAB 09:12
PROVIDERS: ATTEND Advanced Practice Midwife
DX: O34.211 Maternal care for low transverse scar from previous cesarean delivery (principal)

== ENCOUNTER → 2021-05-25 | Outpatient (CLI) | payer OTHER | LOC: M LAB 08:08 | PROVIDERS: ATTEND Advanced Practice Midwife | DX: O99.810 Abnormal glucose complicating pregnancy (principal) ==

== ENCOUNTER → 2021-06-13 | Outpatient (CLI) | payer OTHER ==
--- NOTE | 2021-06-14 11:06 | REP ---
INDICATION: AXILLARY ACCESSORY BREAST TISSUE COMPARISON: None TECHNIQUE: Realtime grayscale ultrasound examination using linear high-frequency transducer. FINDINGS: Directed ultrasound examination of the left axilla demonstrates no abnormality by ultrasound. No fluid collection, mass, or adenopathy noted. IMPRESSION: No obvious abnormality by sonographic evaluation. <Electronically signed by Stalin Mariscal > 06/14/21 [id number]
== END ==
LOC: M WHC 11:26
PROVIDERS: ATTEND Advanced Practice Midwife
DX: Q83.1 Accessory breast (principal)

== ENCOUNTER → 2021-07-15 | Outpatient (CLI) | payer OTHER ==
--- NOTE | 2021-07-15 16:02 | REP ---
INDICATION: GROWTH. COMPARISON: June 13, 2021. TECHNIQUE: Transabdominal obstetric sonography. FINDINGS: Scanning through the gravid uterus demonstrates a viable single intrauterine gestation in cephalic lie. motion is observed and heart rate is recorded at 121 beats per minute. A posterior placenta is seen, grade 2, without evidence of placenta previa. Closed cervical length is measured at 4.1 cm transabdominally. No extrauterine abnormality is observed. Amniotic fluid is subjectively normal. A nuchal cord is noted. Biometry chart: BPD 9.6 cm, 39 weeks 2 days Head circumference 34.2 cm, 39 weeks 3 days Abdominal circumference 35.1 cm, 39 weeks 0 days Femur length 7.6 cm, 39 weeks 0 days Humeral length 6.8 cm, 39 weeks 2 days HC AC ratio normal 0.98 Cephalic index normal 0.80 Estimated weight 3681 g, 8 lb 1 oz, greater than 97th percentile for 37 weeks 0 days. IMPRESSION: Viable single intrauterine gestation at 39 weeks 1 days by today's composite sonographic criteria. JULIO CÉSAR by today's sonography 21 July 2021. No complication identified. Expected gestational age estimate based on known JULIO CÉSAR of 05 August 2021 is 37 weeks 0 days. Estimated weight greater than 97th percentile. <Electronically signed by Blaine Ocampo > 07/15/21 [id number]
== END ==
LOC: M WHC 14:23
PROVIDERS: ATTEND Obstetrics & Gynecology
DX: Z34.93 Encounter for supervision of normal pregnancy, unspecified, third trimester (principal)

== ENCOUNTER → 2021-07-15 | Outpatient (REF) | payer OTHER | LOC: M SFHCWAGY 17:03 | PROVIDERS: ATTEND Obstetrics & Gynecology | DX: Z34.93 Encounter for supervision of normal pregnancy, unspecified, third trimester (principal) ==

== ENCOUNTER 2021-07-30 16:43 | Inpatient (IN) | payer OTHER ==
[~2021-07-30] VITALS: Ht 170.2 cm; Wt 94.2 kg
[2021-07-30 17:11] VITALS: BP 131/84
[2021-07-30] MEDS ORDERED: HOME MED LIST COMPLETE! XX SCH (17:15)
--- OUTSIDE RECORDS SUMMARY | 2021-07-30 20:06 | CCD ---
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 Active conf irmed 07274610 Problem Other elevated white blood cell (WBC) count D72.82 8 Active confirmed 484852081 Problem Migraine without aura and without status migrain osus, not intractable G43.009 Active confirmed 742503929 Problem Obesity complicating in third trimester O99.213 Active confirmed Problem Supervision of other normal Z34.80 Ac tive confirm [id number] ALLERGIES Allergen (clinical drug ingredient) Drug/Non Drug Allergy do cumented on EMR Reaction Allergy Type Onset Date Status Latex Latex vaginal iritation Drug Allergy Activ e ENCOUNTERS from 1993 to 2021-07-26 Encounter Location Date Provider Diagnosis [facility] [address] [facility] [phone] [place] [address] May, Elisa Andre Maternal care due to low transverse uterine scar from previous delivery O34.211 ; 30 weeks gestation of Z3A.30 and 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 IMMUNIZATIONS Vaccine Route Administration Date Status TDAP 0.5mL Boostrix IM Intramuscular May 19, 2021 Administere d Influenza 18 yrs & older Flublok IM Intramuscular Aug 15, 2019 Administered TDAP 0.5mL (Boostrix) IM Intramuscular March 10, 2020 Administe red SOCIAL HISTORY Tobacco Use: Social History Observation Description Date Details (start date - stop date) Never Smoker Sex Assigned At : Social History Observation Description Sex Assigned At Unknown Education: Question Answer Notes Level of Education: High School Audit Question Answer Notes Total Score: 1 Interpretation: Alcohol Education Sexual Hx: Question Answer Notes Had sex in the last 12 months (vaginal, oral, or anal)? Yes LMP: 08/02/16 Have you ever had an STD? No with Men only Use protection? No Drug and Alcohol Question Answer Notes Total Score: 0 Interpretation: No problems reported Alcohol Screening: Question Answer Notes Did you have a drink containing alcohol in the past year? No Points 0 Interpretation Negative Tobacco Use: Question Answer Notes Are you a: never smoker never smoker REASON FOR REFERRAL No Information VITAL SIGNS Weight 201.8 lbs May, Weight-kg 91.53 kg May, Height 67 in May, BMI 31.606 kg/m2 May, Blood pressure systolic 106 mm Hg May, Blood pressure diastolic 68 mm Hg May, MEDICATIONS Medication SIG (Take, Route, Frequency, Duration) Notes Start Da te End Date Status Proctozone-HC 2.5 % 1 application Externally to hemorrhoids TwMay, Active Cyclobenzaprine HCl 10 MG 1 tablet as needed Orally Th ree times a day for 15 days Jan, Not-Taking Ondansetron HCl 4 MG 1 tablet as needed for nause a Orally Once a day for 30 day(s) Active Tri-Sprintec 0.18/0.215/0.25 MG-35 MCG 1 tablet Orally Once a da y for 90 days Not-Taking predniSONE 20 MG 1 tablet Orally Once a day Not-Taking Minoxidil 5 % 1 ml to affected area Externally Twice a day for 30 day (s) Not-Taking Meloxicam 15 MG 1 tablet Orally Once a day for 30 day(s) 0 Jan, Not-Taking Proctofoam HC 1-1 % 1 application Externally Thr ee times a day as needed for 30 days Mar, Not-Taking Riboflavin 100 MG 1 tablet Orally Once a day for 30 day(s) Not-Taking Multivital Not-Taking Amoxicillin-Pot Clavulanate 875-125 MG TAKE 1 TABLET B Y MOUTH TWO TIMES A DAY Oral for 10 Not-Taking Ammonium Lactate 12 % 1 application Externally onc e a day to arms and thighs after shower for 30 days Dec, Active Vitamins - (Dis) 1 tablet Orally Once a day Active Meloxicam 7.5 MG 1 tablet Orally Once a day Not-Taking Magnesium 250 MG 1 tablet with a meal Orally Once a day for 30 day(s) Active Reglan 5 MG 1 tablet before meals orally every 6 eron rs as needed for 30 day(s) Dec, Active Ondansetron 4 MG 1 tablet on the tongue and a llow to dissolve Orally Once a day as needed for 30 day(s) Not-Taki ng Topiramate 50 MG 1 tablet with 25mg Orally 75mg dose total- Artie y Apr, Not-Taking Stool Softener 100 MG 1 capsule Orally twice per day for 30 day( s) May, Active PROCEDURES No Information RESULTS No Results REASON FOR VISIT 2 wk pn MEDICAL (GENERAL) HISTORY Type Description Date Medical History mono 2011 Medical History Headaches sees neuro Surgical History tonsillectomy age 3 Surgical History colposcopy with reba 04/01/18 Surgical History wisdom teeth Surgical History 04/17/2020 Hospitalization History Tonsillectomy age 3 Hospitalization History Childbirth Goals Section No Information Health Concerns No Information MEDICAL EQUIPMENT No Information MENTAL STATUS No Information FUNCTIONAL STATUS No Information ASSESSMENTS Encounter Date Diagnosis Assessment Notes Treatment Notes Treatm ent Clinical Notes May, 30 weeks gestation of (ICD-10 - Z3A.30 ) May, Maternal care due to low tra nsverse uterine scar from previous delivery (ICD-10 - O34.211) May, Axillary accessory breast tissue (ICD-10 - Q83.1 ) PLAN OF TREATMENT Treatment Notes Test Name Order Date Ultrasound right axilla 2021-06-02 Next Appt Details 2 Weeks Reason:- Routine follow up Provider Name:Hermelinda Ravi 2021-07-28 08:00:00 AM, [address] [place] [address], , [place], [address], Provider Name:Hermelinda Ravi 2021-08-04 08:00:00 AM, [address] [facility], , [place], [address], Follow Up:2 Weeks- Routine follow up Insurance Providers Payer Name Payer Address Payer Phone Insured Name Patient Relati onship to Insured Coverage Start Date Coverage End Date [facility] [address] [facility] [id number] RONNI BRUNO self
--- OUTSIDE RECORDS SUMMARY | 2021-07-30 20:07 | CCD ---
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 Active conf irmed 20051432 Problem Other elevated white blood cell (WBC) count D72.82 8 Active confirmed 012362395 Problem Migraine without aura and without status migrain osus, not intractable G43.009 Active confirmed 137866753 Problem Obesity complicating in third trimester O99.213 Active confirmed Problem Supervision of other normal Z34.80 Ac tive confirm 150881557 ALLERGIES Allergen (clinical drug ingredient) Drug/Non Drug Allergy do cumented on EMR Reaction Allergy Type Onset Date Status Latex latex vaginal iritation Non Drug Allergy A ctive ENCOUNTERS from 1993 to 2021-07-06 Encounter Location Date Provider Diagnosis [facility] [address] [facility] [phone] [place] [address] 14 Jun, 2021 Nash Munoz Encounter for superv ision of normal in multigravida in third trimester Z34.83 and 34 weeks gestation of Z3A.34 IMMUNIZATIONS Vaccine Route Administration Date Status TDAP 0.5mL Boostrix IM Intramuscular May 19, 2021 Administere d Influenza 18 yrs & older Flublok IM Intramuscular Aug 15, 2019 Administered TDAP 0.5mL (Boostrix) IM Intramuscular March 10, 2020 Administe lali SOCIAL HISTORY Tobacco Use: Social History Observation [...] FOR REFERRAL No Information VITAL SIGNS Weight 208.2 lbs Jun, Weight-kg 94.44 kg Jun, Height 67 in Jun, BMI 32.609 kg/m2 Jun, Blood pressure systolic 118 mm Hg Jun, Blood pressure diastolic 74 mm Hg Jun, MEDICATIONS Medication SIG (Take, Route, Frequency, Duration) Notes Start Da te End Date Status Meloxicam 7.5 MG 1 tablet Orally Once a day Not-Taking Topiramate 50 MG 1 tablet with 25mg Orally 75mg dose total- Artie y Apr, Not-Taking predniSONE 20 MG 1 tablet Orally Once a day Not-Taking Proctozone-HC 2.5 % 1 application Externally to hemorrhoids Twic e a day May, Active Amoxicillin-Pot Clavulanate 875-125 MG TAKE 1 TABLET B Y MOUTH TWO TIMES A DAY Oral for 10 Not-Taking Magnesium 250 MG 1 tablet with a meal Orally Once a day for 30 day(s) Active Cyclobenzaprine HCl 10 MG 1 tablet as needed Orally Th ree times a day for 15 days Jan, Not-Taking Vitamins - (Dis) 1 tablet Orally Once a day Active Ammonium Lactate 12 % 1 application Externally onc e a day to arms and thighs after shower for 30 days Dec, Active Meloxicam 15 MG 1 tablet Orally Once a day for 30 day(s) 0 Jan, Not-Taking Ondansetron 4 MG 1 tablet on the tongue and a llow to dissolve Orally Once a day as needed for 30 day(s) Not-Taki ng Proctofoam HC 1-1 % 1 application Externally Thr ee times a day as needed for 30 days Mar, Not-Taking Stool Softener 100 MG 1 capsule Orally twice per day for 30 day( s) May, Active Riboflavin 100 MG 1 tablet Orally Once a day for 30 day(s) Not-Taking Ondansetron HCl 4 MG 1 tablet as needed for nause a Orally Once a day for 30 day(s) Active Minoxidil 5 % 1 ml to affected area Externally Twice a day for 30 day (s) Not-Taking Multivital Not-Taking Reglan 5 MG 1 tablet before meals orally every 6 eron rs as needed for 30 day(s) Dec, Active Tri-Sprintec 0.18/0.215/0.25 MG-35 MCG 1 tablet Orally Once a da y for 90 days Not-Taking PROCEDURES No Information RESULTS No Results REASON [...] Notes Treatment Notes Treatm ent Clinical Notes Jun, Encounter for supervision of normal in multigravida in third trimester (ICD-10 - Z34.83) Jun, 34 weeks gestation of (ICD-10 - Z3A.34 ) PLAN OF TREATMENT Next Appt Details Provider Name:Nash Munoz, 2021-07-15 09:15:00 AM, [address] [place] [address] , [place], [address], Provider Name:Hermelinda Ravi, 2021-07-21 08:00:00 AM, [address] [place] [address] , [place], [address], Provider Name:Hermelinda Ravi, 2021-07-28 08:00:00 AM, [address] [place] [address] , [place], [address], Provider Name:Hermelinda Ravi, 2021-08-04 08:00:00 AM, [address] [facility], , [place], [address], Insurance Providers Payer Name Payer Address Payer Phone Insured Name Patient Relati onship to Insured Coverage Start Date Coverage End Date [facility] [address] [facility] [phone] RONNI BRUNO
--- OUTSIDE RECORDS SUMMARY | 2021-07-30 20:07 | CCD ---
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 Role Phone Hermelinda Ravi Unavailable PROBLEMS Type Condition ICD9-CM Code [id number] Code Onset Dates Condition S tatus W/U Status Risk SNOMED Code Notes Problem Supervision of other normal Z34.80 Ac tive confirm [id number] Problem 11 weeks gestation of Z3A.11 Active confi rmed 71128863 Problem Sebaceous cyst L72.3 Active confirmed 31631 3000 Problem Other elevated white blood cell (WBC) count D72.82 8 Active confirmed 687059119 Problem Migraine without aura and without status migrain osus, not intractable G43.009 Active confirmed 997928228 Problem Obesity complicating in third trimester O99.213 Active confirmed ALLERGIES Allergen (clinical drug ingredient) Drug/Non Drug Allergy do cumented on EMR Reaction Allergy Type Onset Date Status Latex latex vaginal iritation Non Drug Allergy A ctive ENCOUNTERS from 1993 to 2021-05-19 Encounter Location Date Provider Diagnosis [facility] [address] [place] [address] [place] [address] May, Hermelinda Ravi IMMUNIZATIONS Vaccine Route Administration Date Status TDAP [...] REASON FOR REFERRAL No Information VITAL SIGNS No information MEDICATIONS Medication SIG (Take, Route, Frequency, Duration) Notes Start Da te End Date Status Stool Softener 100 MG 1 capsule Orally twice per day for 30 day( s) May, Active Tri-Sprintec 0.18/0.215/0.25 MG-35 MCG 1 tablet Orally Once a da y for 90 days Not-Taking Minoxidil 5 % 1 ml to affected area Externally Twice a day for 30 day (s) Not-Taking Magnesium 250 MG 1 tablet with a meal Orally Once a day for 30 day(s) Active Amoxicillin-Pot Clavulanate 875-125 MG TAKE 1 TABLET B Y MOUTH TWO TIMES A DAY Oral for 10 Not-Taking Ondansetron 4 MG 1 tablet on the tongue and a llow to dissolve Orally Once a day as needed for 30 day(s) Not-Taki ng Topiramate 50 MG 1 tablet with 25mg Orally 75mg dose total- Artie y Apr, Not-Taking Riboflavin 100 MG 1 tablet Orally Once a day for 30 day(s) Not-Taking Meloxicam 15 MG 1 tablet Orally Once a day for 30 day(s) 0 2 Jan, 2018 Not-Taking Proctofoam HC 1-1 % 1 application Externally Thr ee times a day as needed for 30 days Mar, Not-Taking predniSONE 20 MG 1 tablet Orally Once a day Not-Taking Reglan 5 MG 1 tablet before meals orally every 6 eron rs as needed for 30 day(s) Dec, Active Multivital Not-Taking Meloxicam 7.5 MG 1 tablet Orally Once a day Not-Taking Vitamins - (Dis) 1 tablet Orally Once a day Active Ondansetron HCl 4 MG 1 tablet Orally Once a day Active Proctozone-HC 2.5 % 1 application Externally to hemorrhoids Twic e a day May, Active Ammonium Lactate 12 % 1 application Externally onc e a day to arms and thighs after shower for 30 days Dec, Active Cyclobenzaprine HCl 10 MG 1 tablet as needed Orally Th ree times a day for 15 days Jan, Not-Taking PROCEDURES No Information RESULTS No Results REASON FOR VISIT send cream MEDICAL (GENERAL) HISTORY Type Description Date Medical History mono 2012 Medical History Headaches sees neuro Surgical History tonsillectomy age 3 Surgical History colposcopy with reba 04/01/18 Surgical History wisdom teeth Surgical History 04/17/2020 Hospitalization History Tonsillectomy age 3 Hospitalization History Childbirth Goals Section No Information Health Concerns No Information MEDICAL EQUIPMENT No Information MENTAL STATUS No Information FUNCTIONAL STATUS No Information ASSESSMENTS No Information PLAN OF TREATMENT Medication Medication Name Sig Start Date Stop Date Reglan 5 MG 1 tablet before meals orally every 6 eron rs as needed for 30 day(s) Dec, Proctozone-HC 2.5 % 1 application Externally to hemorrhoids Twice a day May, Stool Softener 100 MG 1 capsule Orally twice per day for 30 day( s) May, Ondansetron HCl 4 MG 1 tablet Orally Once a day Next Appt Details Provider Name:Elisa Andre, 2021-06-02 09:00:00 AM, [address] [place] [address] , [place], [address], Provider Name:Chiara Leon, 2021-06-16 0 2:00:00 PM, [facility], , [place], [address], Insurance Providers Payer Name Payer Address Payer Phone Insured Name Patient Relati onship to Insured Coverage Start Date Coverage End Date [facility] [address] [place] [id number] RONNI BRUNO
--- OUTSIDE RECORDS SUMMARY | 2021-07-30 20:07 | CCD ---
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 Phone Hermelinda Ravi Unavailable PROBLEMS Type Condition ICD9-CM Code [id number] Code Onset Dates Condition S tatus W/U Status Risk SNOMED Code Notes Problem Supervision of other normal Z34.80 Ac tive confirm 116026278 Problem 11 weeks gestation of Z3A.11 Active confi rmed 56439055 Problem Sebaceous cyst L72.3 Active confirmed 24628 3000 Problem Other elevated white blood cell (WBC) count D72.82 8 Active confirmed 243365077 Problem Migraine without aura and without status migrain osus, not intractable G43.009 Active confirmed 088293255 Problem Obesity complicating in third trimester O99.213 Active confirmed ALLERGIES Allergen (clinical drug ingredient) Drug/Non Drug Allergy do cumented on EMR Reaction Allergy Type Onset Date Status latex vaginal iritation Non Drug Allergy A ctive ENCOUNTERS from 1993 to 2021-05-03 Encounter Location Date Provider Diagnosis [facility] [facility] [phone] [place] [address] Apr, Hermelinda Ravi Maternal care due to low transverse uterine scar from previous delivery O34.211 and 24 weeks gestation of Z3A.24 IMMUNIZATIONS Vaccine Route Administration Date Status Influenza 18 yrs & older Flublok IM [...] FOR REFERRAL No Information VITAL SIGNS Weight 194.4 lbs Apr, Height 67 in Apr, BMI 30.447 kg/m2 Apr, Blood pressure systolic 120 mm Hg Apr, Blood pressure diastolic 76 mm Hg Apr, MEDICATIONS Medication SIG (Take, Route, Frequency, Duration) Notes Start Da te End Date Status Tri-Sprintec 0.18/0.215/0.25 MG-35 MCG 1 tablet Orally Once a da y for 90 days Not-Taking Amoxicillin-Pot Clavulanate 875-125 MG TAKE 1 TABLET B Y MOUTH TWO TIMES A DAY Oral for 10 Not-Taking Riboflavin 100 MG 1 tablet Orally Once a day for 30 day(s) Not-Taking Topiramate 50 MG 1 tablet with 25mg Orally 75mg dose total- Artie y Apr, Not-Taking predniSONE 20 MG 1 tablet Orally Once a day Not-Taking Meloxicam 15 MG 1 tablet Orally Once a day for 30 day(s) 0 Jan, Not-Taking Ammonium Lactate 12 % 1 application Externally onc e a day to arms and thighs after shower for 30 days Dec, Active Reglan 5 MG 1 tablet before meals orally every 6 eron rs as needed for 30 day(s) Dec, Active Multivital Not-Taking Proctofoam HC 1-1 % 1 application Externally Thr ee times a day as needed for 30 days Mar, Not-Taking Ondansetron HCl 4 MG 1 tablet Orally Once a day Dec, 21 Active Meloxicam 7.5 MG 1 tablet Orally Once a day Not-Taking Minoxidil 5 % 1 ml to affected area Externally Twice a day for 30 day (s) Not-Taking Magnesium 250 MG 1 tablet with a meal Orally Once a day for 30 day(s) Active Ondansetron 4 MG 1 tablet on the tongue and a llow to dissolve Orally Once a day as needed for 30 day(s) Not-Taki ng Cyclobenzaprine HCl 10 MG 1 tablet as needed Orally Th ree times a day for 15 days Jan, Not-Taking Vitamins - (Dis) 1 tablet Orally Once a day Active PROCEDURES No Information RESULTS No Results REASON FOR VISIT 4WK PN MEDICAL (GENERAL) HISTORY Type Description Date Medical [...] Notes Treatment Notes Treatm ent Clinical Notes Apr, Maternal care due to low tra nsverse uterine scar from previous delivery (ICD-10 - O34.211) Apr, 24 weeks gestation of (ICD-10 - Z3A.24 ) PLAN OF TREATMENT Treatment Notes Test Name Order Date Type and Screen (D Rh Antibody Screen) 2021-04-21 CBC - Complete Blood Count 2021-04-21 Glucose Challenge Test 1 Hour 2021-04-21 Next Appt Details 4 Weeks Reason:PN Provider Name:Hermelinda Ravi, 2021-05-19 08:00:00 AM, [address] [facility], , [place], [address], Follow Up:4 WeeksPN Insurance Providers Payer Name Payer Address Payer Phone Insured Name Patient Relati onship to Insured Coverage Start Date Coverage End Date [facility] [address] [facility] [phone] RONNI BRUNO
--- OUTSIDE RECORDS SUMMARY | 2021-07-30 20:07 | CCD ---
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 [place] [address] [phone] Re-disclosure Warning The records that you are about to access may contain information from federally-assisted alcohol or drug abuse programs. If such information is present, then the following federally mandated warning applies: This information has been disclosed to you from records protected by federal confidentiality rules (42 CFR part 2). The federal rules prohibit you from making any further disclosure of this information unless further disclosure is expressly permitted by the written consent of the person to whom it pertains or as otherwise permitted by 42 CFR part 2. A general authorization for the release of medical or other information is NOT sufficient for this purpose. The Federal rules restrict any use of the information to criminally investigate or prosecute any alcohol or drug abuse patient.The records that you are about to access may contain highly sensitive health information, the redisclosure of which is protected by Article 27-F of the [facility] Public Health law. If you continue you may have access to information: Regarding HIV / AIDS; Provided by facilities licensed or operated by the [facility] Office of Mental Health; or Provided by the [facility] Office for People With Developmental Disabilities. If such information is present, then the following [facility] mandated warning applies: This information has been disclosed to you from confidential records which are protected by state law. State law prohibits you from making any further disclosure of this information without the specific written consent of the person to whom it pertains, or as otherwise permitted by law. Any unauthorized further disclosure in violation of state law may result in a fine or retirement sentence or both. A general authorization for the release of medical or other information is NOT sufficient authorization for further disc losure. Family History Family Member Name Family Member Gender Family Member Status Date o f Status Description Data Source(s) Unknown Unknown Problem MEDENT ([facility]) Unknown Unknown Problem MEDENT ([facility] ) Encounters Encounter Providers Location Date Indications Data Source(s ) ( ESTOB) [facility] Est OB [address] [place] [address] 06/28/2021 12:00:00 AM EDT eCW1 ([facility]) Unknown [address] [facility] [address] 06/19/2021 12:00:00 AM EDT [facility] ( [facility]OB) [facility] Est OB [address] [place] [address] 06/02/2021 12:00:00 AM EDT [facility]CW1 [facility]) ( ESTOB) [facility] Est OB [address] [place] [address] 05/19/2021 12:00:00 AM EDT eCW1 ([facility]) Unknown [address] [facility] [address] 05/19/2021 12:00:00 AM EDT eCW1 ([facility] [place] [address] [facility] [address] 05/19/2021 12:00:00 AM EDT eCW1 ([facility]) [place] [address] [facility] [address] 05/06/2021 12:00:00 AM EDT eCW1 ([facility]) (WC ESTOB) [facility] [address] [place] [address] 04/21/2021 12:00:00 AM EDT eCW1 ([facility]) (WC ESTOB) [facility] [address] [place] [address] 03/23/2021 12:00:00 AM EDT eCW1 ([facility]) [place] [address] [facility] [address] 03/11/2021 12:00:00 AM EDT eCW1 ([facility]) [place] [address] [facility] [address] 03/09/2021 12:00:00 AM EDT eCW1 ([facility]) (WC ESTOB) [facility] [address] [place] [address] 02/16/2021 12:00:00 AM EDT eCW1 ([facility]) [place] [address] [facility] [address] 01/11/2021 12:00:00 AM EDT eCW1 ([facility]) [place] [address] [facility] [address] 12/21/2020 12:00:00 AM EST eCW1 ([facility]) (WC ESTOB) [facility] [address] [place] [address] 12/17/2020 12:00:00 AM EST eCW1 ([facility]) Immunizations Vaccine Date Status Description Data Source(s) Tdap 05/19/2021 08:45:00 AM EDT completed e CW1 ([facility]) Tdap 05/19/2021 08:45:00 AM EDT completed e CW1 ([facility]) Tdap 05/19/2021 08:45:00 AM EDT completed e CW1 ([facility]) Tdap 05/19/2021 08:45:00 AM EDT completed e CW1 ([facility]) Tdap 05/19/2021 08:45:00 AM EDT completed e CW1 ([facility]) Tdap 05/19/2021 08:45:00 AM EDT completed e CW1 ([facility]) Medications Medication Brand Name Start Date Product Form Dose Route Admi nistrative Instructions Pharmacy Instructions Status Indications Reaction Description Data Source(s) 4 mg 06/21/2021 12:00:00 AM EDT tablet 30 TAKE ONE TABLET BY MOUTH EVERY DAY TAKE ONE TABLET BY MOUTH EVERY DAY SOLD: 07/25/2021 [facility] 4 mg 06/21/2021 12:00:00 AM EDT tablet 30 TAKE ONE TABLET BY MOUTH EVERY DAY TAKE ONE TABLET BY MOUTH EVERY DAY SOLD: 06/21/2021 [facility] Hydrocortisone 25 MG/ML Topical Cream [Proctozone HC] Proctozone-HC 2.5 % Proctozone-HC 2.5 % 05/19/2021 12:00:00 AM EDT 1.0 {application} active Proctozone-HC 2.5 % eCW1 ([facility]) Docusate Sodium 100 MG Oral Capsule Stool Softener [address] ool Softener 100 MG 05/19/2021 12:00:00 AM EDT 1.0 {capsule} active Stool Softener 100 MG eCW1 ([facility]) Docusate Sodium 100 MG Oral Tablet DOCUSATE SODIUM 05/19/2021 12 :00:00 AM EDT tablet 60 TAKE ONE TABLET BY MOUTH TWICE A DAY TAKE ONE TABLET BY MOUTH TWICE A DAY SOLD: 05/19/2021 [facility] Docusate Sodium 100 MG Oral Capsule Stool Softener [address] ool Softener 100 MG 05/19/2021 12:00:00 AM EDT 1.0 {capsule} active Stool Softener 100 MG eCW1 ([facility]) Docusate Sodium 100 MG Oral Capsule Stool Softener [address] ool Softener 100 MG 05/19/2021 12:00:00 AM EDT 1.0 {capsule} active Stool Softener 100 MG eCW1 ([facility]) Hydrocortisone 25 MG/ML Topical Cream [Proctozone HC] Proctozone-HC 2.5 % Proctozone-HC 2.5 % 05/19/2021 12:00:00 AM EDT 1.0 {application} active Proctozone-HC 2.5 % eCW1 ([facility]) Hydrocortisone 25 MG/ML Topical Cream [Proctozone HC] Proctozone-HC 2.5 % Proctozone-HC 2.5 % 05/19/2021 12:00:00 AM EDT 1.0 {application} active Proctozone-HC 2.5 % eCW1 ([facility]) Hydrocortisone 25 MG/ML Topical Cream [Proctozone HC] Proctozone-HC 2.5 % Proctozone-HC 2.5 % 05/19/2021 12:00:00 AM EDT 1.0 {application} active Proctozone-HC 2.5 % eCW1 ([facility]) Docusate Sodium 100 MG Oral Capsule Stool Softener [address] ool Softener 100 MG 05/19/2021 12:00:00 AM EDT 1.0 {capsule} active Stool Softener 100 MG eCW1 ([facility]) Docusate Sodium 100 MG Oral Capsule Stool Softener [address] ool Softener 100 MG 05/19/2021 12:00:00 AM EDT 1.0 {capsule} active Stool Softener 100 MG eCW1 ([facility]) Hydrocortisone 25 MG/ML Topical Cream [Proctozone HC] Proctozone-HC 2.5 % Proctozone-HC 2.5 % 05/19/2021 12:00:00 AM EDT 1.0 {application} active Proctozone-HC 2.5 % eCW1 ([facility]) 5 mg 05/19/2021 12:00:00 AM EDT tablet 60 TAKE ONE TABLET BY MOUTH EVERY 6 HOURS NEEDED BEFORE MEALS TAKE ONE TABLET BY MOUTH EVERY 6 HOURS A S NEEDED BEFORE MEALS SOLD: 05/19/2021 [facility] Hydrocortisone 25 MG/ML Topical Cream [Proctozone HC] Proctozone-HC 2.5 % Proctozone-HC 2.5 % 05/19/2021 12:00:00 AM EDT 1.0 {application} active Proctozone-HC 2.5 % eCW1 ([facility]) Docusate Sodium 100 MG Oral Capsule Stool Softener [address] ool Softener 100 MG 05/19/2021 12:00:00 AM EDT 1.0 {capsule} active Stool Softener 100 MG eCW1 ([facility]) 2.5 % 05/19/2021 12:00:00 AM EDT cream with perineal everett licator 28 APPLY ONE TOPICALLY TWICE A DAY TO HEMORRHOIDS APPLY ONE TOPICALLY TWICE A DAY TO HEMORRHOIDS SOLD: 05/19/2021 [facility] 5 mg 05/19/2021 12:00:00 AM EDT tablet 60 TAKE ONE TABLET BY MOUTH EVERY 6 HOURS NEEDED BEFORE MEALS TAKE ONE TABLET BY MOUTH EVERY 6 HOURS A S NEEDED BEFORE MEALS SOLD: 07/25/2021 [facility] 5 mg 01/17/2021 12:00:00 AM EDT tablet 60 TAKE ONE TABLET BY MOUTH BEFORE MEALS EVERY 6 HOURS NEEDED TAKE ONE TABLET BY MOUTH BEFORE MEALS EV GABRIELA 6 HOURS NEEDED SOLD: 02/14/2021 [facility] 5 mg 01/17/2021 12:00:00 AM EDT tablet 60 TAKE ONE TABLET BY MOUTH BEFORE MEALS EVERY 6 HOURS NEEDED TAKE ONE TABLET BY MOUTH BEFORE MEALS EV GABRIELA 6 HOURS NEEDED SOLD: 01/17/2021 [facility] ammonium lactate 120 MG/ML Topical Lotion Ammonium [place] gar[place] 12 % Ammonium Lactate 12 % 01/11/2021 12:00:00 AM EDT 1.0 {application} active Ammonium Lactate 12 % eCW1 ([facility]) ammonium lactate 120 MG/ML Topical Lotion Ammonium [place] gar[place] 12 % Ammonium Lactate 12 % 01/11/2021 12:00:00 AM EDT 1.0 {application} active Ammonium Lactate 12 % eCW1 ([facility]) ammonium lactate 120 MG/ML Topical Lotion Ammonium [place] gar[place] 12 % Ammonium Lactate 12 % 01/11/2021 12:00:00 AM EDT 1.0 {application} active Ammonium Lactate 12 % eCW1 ([facility]) ammonium lactate 120 MG/ML Topical Lotion Ammonium [place] 12 % Ammonium Lactate 12 % 01/11/2021 12:00:00 AM EDT 1.0 {application} active Ammonium Lactate 12 % eCW1 ([facility]) ammonium lactate 120 MG/ML Topical Lotion Ammonium [place] 12 % Ammonium Lactate 12 % 01/11/2021 12:00:00 AM EDT 1.0 {application} active Ammonium Lactate 12 % eCW1 ([facility]) ammonium lactate 120 MG/ML Topical Lotion Ammonium [place] gar[place] 12 % Ammonium Lactate 12 % 01/11/2021 12:00:00 AM EDT 1.0 {application} active Ammonium Lactate 12 % eCW1 ([facility]) 12 % 01/11/2021 12:00:00 AM EDT lotion 400 APPLY TO AFFECTED AREA(S) OF ARMS AND THIGHS ONCE DAILY AFTER SHOWER APPLY TO AFFECTED AREA(S) OF ARMS AND TH IGHS ONCE DAILY AFTER SHOWER SOLD: 01/17/2021 [facility] ammonium lactate 120 MG/ML Topical Lotion Ammonium [place] gar[place] 12 % Ammonium Lactate 12 % 01/11/2021 12:00:00 AM EDT 1.0 {application} active Ammonium Lactate 12 % eCW1 ([facility]) ammonium lactate 120 MG/ML Topical Lotion Ammonium [place] gar[place] 12 % Ammonium Lactate 12 % 01/11/2021 12:00:00 AM EDT 1.0 {application} active Ammonium Lactate 12 % eCW1 ([facility]) ammonium lactate 120 MG/ML Topical Lotion Ammonium [place] gar[place] 12 % Ammonium Lactate 12 % 01/11/2021 12:00:00 AM EDT 1.0 {application} active Ammonium Lactate 12 % eCW1 ([facility]) ammonium lactate 120 MG/ML Topical Lotion Ammonium [place] gar[place] 12 % Ammonium Lactate 12 % 01/11/2021 12:00:00 AM EDT 1.0 {application} active Ammonium Lactate 12 % eCW1 ([facility]) ammonium lactate 120 MG/ML Topical Lotion Ammonium [place] gar[place] 12 % Ammonium Lactate 12 % 01/11/2021 12:00:00 AM EDT 1.0 {application} active Ammonium Lactate 12 % eCW1 ([facility]) ammonium lactate 120 MG/ML Topical Lotion Ammonium [place] gar[place] 12 % Ammonium Lactate 12 % 01/11/2021 12:00:00 AM EDT 1.0 {application} active Ammonium Lactate 12 % eCW1 ([facility]) ammonium lactate 120 MG/ML Topical Lotion Ammonium [place] gar[place] 12 % Ammonium Lactate 12 % 01/11/2021 12:00:00 AM EDT 1.0 {application} active Ammonium Lactate 12 % eCW1 ([facility]) Metoclopramide 5 MG Oral Tablet [Reglan] Reglan 5 MG Reglan 5 MG 12/21/2020 12:00:00 AM EST 1.0 {tablet_before_meals} active Reglan 5 MG eCW1 ([facility]) Metoclopramide 5 MG Oral Tablet [Reglan] Reglan 5 MG Reglan 5 MG 12/21/2020 12:00:00 AM EST 1.0 {tablet_before_meals} active Reglan 5 MG eCW1 ([facility]) Metoclopramide 5 MG Oral Tablet [Reglan] Reglan 5 MG Reglan 5 MG 12/21/2020 12:00:00 AM EST 1.0 {tablet_before_meals} active Reglan 5 MG eCW1 ([facility]) Metoclopramide 5 MG Oral Tablet [Reglan] Reglan 5 MG Reglan 5 MG 12/21/2020 12:00:00 AM EST 1.0 {tablet_before_meals} active Reglan 5 MG eCW1 ([facility]) Metoclopramide 5 MG Oral Tablet [Reglan] Reglan 5 MG Reglan 5 MG 12/21/2020 12:00:00 AM EST 1.0 {tablet_before_meals} active Reglan 5 MG eCW1 ([facility]) Metoclopramide 5 MG Oral Tablet [Reglan] Reglan 5 MG Reglan 5 MG 12/21/2020 12:00:00 AM EST 1.0 {tablet_before_meals} active Reglan 5 MG eCW1 ([facility]) Metoclopramide 5 MG Oral Tablet [Reglan] Reglan 5 MG Reglan 5 MG 12/21/2020 12:00:00 AM EST 1.0 {tablet_before_meals} active Reglan 5 MG eCW1 ([facility]) 5 mg 12/21/2020 12:00:00 AM EST tablet 60 TAKE ONE TABLET BY MOUTH TWICE A DAY BEFORE MEALS TAKE ONE TABLET BY MOUTH TWICE A DAY BEFORE MEALS SOLD : 12/21/2020 [facility] Metoclopramide 5 MG Oral Tablet [Reglan] Reglan 5 MG Reglan 5 MG 12/21/2020 12:00:00 AM EST 1.0 {tablet_before_meals} active Reglan 5 MG eCW1 ([facility]) Metoclopramide 5 MG Oral Tablet [Reglan] Reglan 5 MG Reglan 5 MG 12/21/2020 12:00:00 AM EST 1.0 {tablet_before_meals} active Reglan 5 MG eCW1 ([facility]) Metoclopramide 5 MG Oral Tablet [Reglan] Reglan 5 MG Reglan 5 MG 12/21/2020 12:00:00 AM EST 1.0 {tablet_before_meals} active Reglan 5 MG eCW1 ([facility]) Metoclopramide 5 MG Oral Tablet [Reglan] Reglan 5 MG Reglan 5 MG 12/21/2020 12:00:00 AM EST 1.0 {tablet_before_meals} active Reglan 5 MG eCW1 ([facility]) Metoclopramide 5 MG Oral Tablet [Reglan] Reglan 5 MG Reglan 5 MG 12/21/2020 12:00:00 AM EST 1.0 {tablet_before_meals} active Reglan 5 MG eCW1 ([facility]) Metoclopramide 5 MG Oral Tablet [Reglan] Reglan 5 MG Reglan 5 MG 12/21/2020 12:00:00 AM EST 1.0 {tablet_before_meals} active Reglan 5 MG eCW1 ([facility]) Metoclopramide 5 MG Oral Tablet [Reglan] Reglan 5 MG Reglan 5 MG 12/21/2020 12:00:00 AM EST 1.0 {tablet_before_meals} active Reglan 5 MG eCW1 ([facility]) Metoclopramide 5 MG Oral Tablet [Reglan] Reglan 5 MG Reglan 5 MG 12/21/2020 12:00:00 AM EST 1.0 {tablet_before_meals} active Reglan 5 MG eCW1 ([facility]) 4 mg 12/18/2020 12:00:00 AM EST tablet 45 TAKE ONE TABLET BY MOUTH TWICE A DAY NEEDED FOR NAUSEA TAKE ONE TABLET BY MOUTH TWICE A DAY NEEDED FOR NAUSEA SOLD: 02/14/2021 [facility] 4 mg 12/18/2020 12:00:00 AM EST tablet 45 TAKE ONE TABLET BY MOUTH TWICE A DAY NEEDED FOR NAUSEA TAKE ONE TABLET BY MOUTH TWICE A DAY NEEDED FOR NAUSEA SOLD: 12/18/2020 [facility] 4 mg 12/18/2020 12:00:00 AM EST tablet 45 TAKE ONE TABLET BY MOUTH TWICE A DAY NEEDED FOR NAUSEA TAKE ONE TABLET BY MOUTH TWICE A DAY NEEDED FOR NAUSEA SOLD: 03/26/2021 [facility] 4 mg 12/18/2020 12:00:00 AM EST tablet 45 TAKE ONE TABLET BY MOUTH TWICE A DAY NEEDED FOR NAUSEA TAKE ONE TABLET BY MOUTH TWICE A DAY NEEDED FOR NAUSEA SOLD: 05/12/2021 [facility] 4 mg 12/18/2020 12:00:00 AM EST tablet 45 TAKE ONE TABLET BY MOUTH TWICE A DAY NEEDED FOR NAUSEA TAKE ONE TABLET BY MOUTH TWICE A DAY NEEDED FOR NAUSEA SOLD: 01/09/2021 [facility] Ondansetron 4 MG Oral Tablet Ondansetron HCl 4 MG Ondansetro n HCl 4 MG 12/17/2020 12:00:00 AM EST 1.0 {tablet} active Ondansetron HCl 4 MG eCW1 ([facility]) Ondansetron 4 MG Oral Tablet Ondansetron HCl 4 MG Ondansetro n HCl 4 MG 12/17/2020 12:00:00 AM EST 1.0 {tablet} active Ondansetron HCl 4 MG eCW1 ([facility]) Ondansetron 4 MG Oral Tablet Ondansetron HCl 4 MG Ondansetro n HCl 4 MG 12/17/2020 12:00:00 AM EST 1.0 {tablet} active Ondansetron HCl 4 MG eCW1 ([facility]) Ondansetron 4 MG Oral Tablet Ondansetron HCl 4 MG Ondansetro n HCl 4 MG 12/17/2020 12:00:00 AM EST 1.0 {tablet} active Ondansetron HCl 4 MG eCW1 ([facility]) Ondansetron 4 MG Oral Tablet Ondansetron HCl 4 MG Ondansetro n HCl 4 MG 12/17/2020 12:00:00 AM EST 1.0 {tablet} active Ondansetron HCl 4 MG eCW1 ([facility]) Ondansetron 4 MG Oral Tablet Ondansetron HCl 4 MG Ondansetro n HCl 4 MG 12/17/2020 12:00:00 AM EST 1.0 {tablet} active Ondansetron HCl 4 MG eCW1 ([facility]) Ondansetron 4 MG Oral Tablet Ondansetron HCl 4 MG Ondansetro n HCl 4 MG 12/17/2020 12:00:00 AM EST 1.0 {tablet} active Ondansetron HCl 4 MG eCW1 ([facility]) Ondansetron 4 MG Oral Tablet Ondansetron HCl 4 MG Ondansetro n HCl 4 MG 12/17/2020 12:00:00 AM EST 1.0 {tablet} active Ondansetron HCl 4 MG eCW1 ([facility]) Ondansetron 4 MG Oral Tablet Ondansetron HCl 4 MG Ondansetro n HCl 4 MG 12/17/2020 12:00:00 AM EST 1.0 {tablet} active Ondansetron HCl 4 MG eCW1 ([facility]) Insurance Providers Payer name Policy type / Coverage type Policy ID Covered constitution party ID Covered constitution party's relationship to obando Policy [place] Plan Information [facility] [id number] [facility] MEDICAID [id number] SP [id number] SELF PAY ONLY [id number] SP [id number] MVP MCDO [id number] SP [id number] [facility] FEDERAL EMPLOYEE PROGRAM [id number] SP [id number] SP [id number] [facility] [place] [facility] FEDERAL B [id number] S [id number] D [facility] P [id number] S [id number] ANSI-Commercial [id number] [facility] FEDERAL EMPLOYEE PROGRAM [id number] SP [id number] [facility] Federal Plan Commercial [id number] Self [id number] ANSI-Commercial [id number] ANSI-Commercial [id number] ANSI-Commercial [id number] [facility] Federal Plan Commercial [id number] Self [id number] [facility] Federal Plan Commercial [id number] Self [id number] [facility] [id number] SP [id number] [facility] [id number] SP [id number] [facility] Health Maintenance Organization (HMO) [id number] Self [id number] [facility] Health Maintenance Organization (HMO) [id number] Self [id number] [facility] [id number] Self HMO BLUE [id number] SP [id number] [facility] [id number] SP [id number] BLUE CROSS BLUE SHIELD-O/P [id number] Problems, Conditions, and Diagnoses Code Display Name Description Problem Type Effective Dates Data Source(s) 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 06/02/2021 12:00:00 AM EDT eCW1 ([facility]) Z3A.11 Gestation period, 11 weeks 11 weeks gestation of pregn pipo Problem 01/13/2021 12:00:00 AM EDT eCW1 ([facility]) Z34.80 care Supervision of other normal P roblem 12/13/2020 12:00:00 AM EST eCW1 ([facility]) Surgeries/Procedures Procedure Description Date Indications Data Source(s) TDAP VACCINE 7/> YR IM 05/19/2021 12:00:00 AM EDT eCW1 ([facility]) Results ID Date Data Source WWBC OBS COMPLETE US 03/04/2021 12:00:00 AM EDT eCW1 ([facility]) Name Value Range Interpretation Code Description Data [place] rce(s) Supporting Document(s) WWBC OBS COMPLETE US eCW1 ([facility]) ID Date Data Source HBSAG 12/17/2020 12:00:00 AM EST eCW1 ([facility]) Name Value Range Interpretation Code Description Data [place] rce(s) Supporting Document(s) NEGATIVE NEGATIVE eCW1 ([facility]) ID Date Data Source RUBELLA IMMUNE STATUS IgG 12/17/2020 12:00:00 AM EST eCW1 ([facility]) Name Value Range Interpretation Code Description Data [place] rce(s) Supporting Document(s) IMMUNE IMMUNE RUBELLA IgG QUALITATIVE eCW1 ( [facility]) ID Date Data Source SYPHILIS ANTIBODY (RPR SCREEN) 12/17/2020 12:00:00 AM EST eC W1 ([facility]) Name Value Range Interpretation Code Description Data [place] rce(s) Supporting Document(s) NONREACTIVE NONREACTIVE SYPHILIS eCW1 ([facility]) SYPHILIS ID Date Data Source [id number] 12/17/2020 12:00:00 AM EST eCW1 ([facility]) Name Value Range Interpretation Code Description Data [place] rce(s) Supporting Document(s) HIV 1+2 Ab+HIV1 p24 Ag [Presence] in Serum or Plasma by Immu noassay NEGATIVE NEGATIVE NEGATIVE eCW1 ([facility]) HIV SCRN eCW1 ([facility]) ID Date Data Source HEPATITIS C ANTIBODY INDEX 12/17/2020 12:00:00 AM EST eCW1 ( [facility]) Name Value Range Interpretation Code Description Data [place] rce(s) Supporting Document(s) < 0.0 <0.8 0.1 eCW1 ([facility]) HEPATITIS C VIRUS ANDRES INDEX ID Date Data Source CBC - Complete Blood Count 12/17/2020 12:00:00 AM EST eCW1 ( [facility]) Name Value Range Interpretation Code Description Data [place] rce(s) Supporting Document(s) 12.1 4.0-10.0 WHITE BLOOD COUNT eCW1 ([facility]) 30.0 27.0-33.0 MEAN CORPUSCULAR HEMOGLOB IN eCW1 ([facility]) 91.1 80.0-96.0 MEAN CORPUSCULAR VOLUME e CW1 ([facility]) 4.27 4.00-5.40 RED BLOOD COUNT eCW1 ([facility]) 38.9 36.0-47.0 HEMATOCRIT eCW1 ([facility]) 12.8 12.0-15.5 HEMOGLOBIN eCW1 ([facility]) 32.9 32.0-36.5 MEAN CORPUSCULAR HGB CONC eCW1 ([facility]) 12.1 11.5-14.5 RED CELL DISTRIBUTION WID TH eCW1 ([facility]) 373 150-450 PLATELET COUNT, AUTOMATED eCW1 ([facility]) ID Date Data Source Type and Screen Prenatal1 12/17/2020 12:00:00 AM EST eCW1 ([facility]) Name Value Range Interpretation Code Description Data [place] rce(s) Supporting Document(s) NEGATIVE eCW1 ([facility]) Procedure Social History Code Duration Value Status Description Data Source(s ) Smoking 07/25/2021 12:00:00 AM EDT Never Smoker completed Never S moker eCW1 ([facility]) Smoking 06/28/2021 12:00:00 AM EDT Never Smoker completed Never S moker eCW1 ([facility]) Smoking 06/02/2021 12:00:00 AM EDT Never Smoker completed Never S moker eCW1 ([facility]) Smoking 06/02/2021 12:00:00 AM EDT Never Smoker completed Never S moker eCW1 ([facility]) Smoking 05/19/2021 12:00:00 AM EDT Never Smoker completed Never S moker eCW1 ([facility]) Smoking 05/19/2021 12:00:00 AM EDT Never Smoker completed Never S moker eCW1 ([facility]) Smoking 04/21/2021 12:00:00 AM EDT Never Smoker completed Never S moker eCW1 ([facility]) Smoking 04/21/2021 12:00:00 AM EDT Never Smoker completed Never S moker eCW1 ([facility]) Smoking 03/23/2021 12:00:00 AM EDT Never Smoker completed Never S moker eCW1 ([facility]) Smoking 02/16/2021 12:00:00 AM EDT Never Smoker completed Never S moker eCW1 ([facility]) Smoking 02/16/2021 12:00:00 AM EDT Never Smoker completed Never S moker eCW1 ([facility]) Smoking 02/16/2021 12:00:00 AM EDT Never Smoker completed Never S moker eCW1 ([facility]) Smoking 01/11/2021 12:00:00 AM EDT Never Smoker completed Never S moker eCW1 ([facility]) Smoking 12/17/2020 12:00:00 AM EST Never Smoker completed Never S moker eCW1 ([facility]) Smoking 12/17/2020 12:00:00 AM EST Never Smoker completed Never S moker eCW1 ([facility]) Vital Signs ID Date Data Source UNK Name Value Range Interpretation Code Description Data Source(s) Body weight 208.2 [lb_av] 208.2 [lb_av] eCW1 ([facility]) Body weight 94.44 kg 94.44 kg eCW1 ([facility]) Body height 67 [in_i] 67 [in_i] eCW1 ([facility]) Body mass index (BMI) [Ratio] 32.609 kg/m2 32.6 09 kg/m2 eCW1 ([facility]) Systolic blood pressure 118 mm[Hg] 118 mm[Hg] e CW1 ([facility]) Diastolic blood pressure 74 mm[Hg] 74 mm[Hg] eCW1 ([facility]) Body weight 201.8 [lb_av] 201.8 [lb_av] eCW1 ([facility]) Body weight 91.53 kg 91.53 kg eCW1 ([facility]) Body height 67 [in_i] 67 [in_i] eCW1 ([facility]) Body mass index (BMI) [Ratio] 31.606 kg/m2 31.6 06 kg/m2 eCW1 ([facility]) Systolic blood pressure 106 mm[Hg] 106 mm[Hg] e CW1 ([facility]) Diastolic blood pressure 68 mm[Hg] 68 mm[Hg] eCW1 ([facility]) Body weight 200 [lb_av] 200 [lb_av] eCW1 ([facility]) Body weight 90.72 kg 90.72 kg eCW1 ([facility]) Body height 67 [in_i] 67 [in_i] eCW1 ([facility]) Body mass index (BMI) [Ratio] 31.324 kg/m2 31.3 24 kg/m2 eCW1 ([facility]) Systolic blood pressure 110 mm[Hg] 110 mm[Hg] e CW1 ([facility]) Diastolic blood pressure 68 mm[Hg] 68 mm[Hg] eCW1 ([facility]) Body mass index (BMI) [Ratio] 30.447 kg/m2 30.4 47 kg/m2 eCW1 ([facility]) Body weight 194.4 [lb_av] 194.4 [lb_av] eCW1 ([facility]) Diastolic blood pressure 76 mm[Hg] 76 mm[Hg] eCW1 ([facility]) Systolic blood pressure 120 mm[Hg] 120 mm[Hg] e CW1 ([facility]) Body height 67 [in_i] 67 [in_i] eCW1 ([facility]) Body weight 186.6 [lb_av] 186.6 [lb_av] eCW1 ([facility]) Body mass index (BMI) [Ratio] 29.226 kg/m2 29.2 26 kg/m2 eCW1 ([facility]) Systolic blood pressure 118 mm[Hg] 118 mm[Hg] e CW1 ([facility]) Diastolic blood pressure 78 mm[Hg] 78 mm[Hg] eCW1 ([facility]) Body height 67 [in_i] 67 [in_i] eCW1 ([facility]) Body weight 183.2 [lb_av] 183.2 [lb_av] eCW1 ([facility]) Body height 67 [in_i] 67 [in_i] eCW1 ([facility]) Body mass index (BMI) [Ratio] 28.693 kg/m2 28.6 93 kg/m2 eCW1 ([facility]) Systolic blood pressure 110 mm[Hg] 110 mm[Hg] e CW1 ([facility]) Diastolic blood pressure 56 mm[Hg] 56 mm[Hg] eCW1 ([facility]) Body weight 179.8 [lb_av] 179.8 [lb_av] eCW1 ([facility]) Body height 67 [in_i] 67 [in_i] eCW1 ([facility]) Body mass index (BMI) [Ratio] 28.16 kg/m2 28.16 kg/m2 eCW1 ([facility]) Systolic blood pressure 112 mm[Hg] 112 mm[Hg] e CW1 ([facility]) Diastolic blood pressure 64 mm[Hg] 64 mm[Hg] eCW1 ([facility]) Body weight 177.4 [lb_av] 177.4 [lb_av] eCW1 ([facility]) Body height 67 [in_i] 67 [in_i] eCW1 ([facility]) Body mass index (BMI) [Ratio] 27.785 kg/m2 27.7 85 kg/m2 eCW1 ([facility]) Systolic blood pressure 116 mm[Hg] 116 mm[Hg] e CW1 ([facility]) Diastolic blood pressure 70 mm[Hg] 70 mm[Hg] eCW1 ([facility]) Patient Treatment Plan of Care Planned Activity Planned Date Details Description Data Source (s) Hydrocortisone 25 MG/ML Topical Cream [Proctozone HC] 05/19/2021 12:00:00 AM EDT eCW1 ([facility]) Docusate Sodium 100 MG Oral Capsule 05/19/2021 12:00:00 AM EDT eCW1 ([facility]) Hydrocortisone 25 MG/ML Topical Cream [Proctozone HC] 05/19/2021 12:00:00 AM EDT eCW1 ([facility]) Docusate Sodium 100 MG Oral Capsule 05/19/2021 12:00:00 AM EDT eCW1 ([facility]) ammonium lactate 120 MG/ML Topical Lotion 01/11/2021 12:00:00 AM ED T eCW1 ([facility]) Metoclopramide 5 MG Oral Tablet [Reglan] 12/21/2020 12:00:00 AM EST eCW1 ([facility]) Metoclopramide 5 MG Oral Tablet [Reglan] 12/21/2020 12:00:00 AM EST eCW1 ([facility]) Metoclopramide 5 MG Oral Tablet [Reglan] 12/21/2020 12:00:00 AM EST eCW1 ([facility]) Metoclopramide 5 MG Oral Tablet [Reglan] 12/21/2020 12:00:00 AM EST eCW1 ([facility]) Ondansetron 4 MG Oral Tablet 12/17/2020 12:00:00 AM EST eCW1 ([facility]) Ondansetron 4 MG Oral Tablet 12/17/2020 12:00:00 AM EST eCW1 ([facility])
--- OUTSIDE RECORDS SUMMARY | 2021-07-30 20:07 | CCD ---
Author Author [facility] Organization [facility] Address Unknown Phone Unavailable Care Team Providers Care Manager Of Sales Name Role Phone Elisa Andre Unavailable PROBLEMS Type Condition ICD9-CM Code [id number] Code Onset Dates Condition S tatus W/U Status Risk SNOMED Code Notes Problem Supervision of other normal Z34.80 Ac tive confirm 056372584 Problem 11 weeks gestation of Z3A.11 Active confi rmed 39878782 Problem Sebaceous cyst L72.3 Active confirmed 53399 3000 Problem Other elevated white blood cell (WBC) count D72.82 8 Active confirmed 675757380 Problem Migraine without aura and without status migrain osus, not intractable G43.009 Active confirmed 545193685 Problem Obesity complicating in third trimester O99.213 Active confirmed ALLERGIES Allergen (clinical drug ingredient) Drug/Non Drug Allergy do cumented on EMR Reaction Allergy Type Onset Date Status latex vaginal iritation Non Drug Allergy A ctive ENCOUNTERS from 1993 to 2021-05-06 Encounter Location Date Provider Diagnosis [facility] [facility] [phone] [place] [address] Apr, Elisa Andre IMMUNIZATIONS Vaccine Route Administration Date Status Influenza [...] 1 tablet Orally Once a day Dec, Active Meloxicam 7.5 MG 1 tablet Orally [...] Information RESULTS No Results REASON FOR VISIT No Information MEDICAL (GENERAL) HISTORY Type Description Date Medical [...] Information ASSESSMENTS No Information PLAN OF TREATMENT Next Appt Details Provider Name:Hermelinda Marcia Ravi, 2021-05-19 08:00:00 AM, [address] [facility], , [place], [address], Insurance Providers Payer Name Payer Address Payer Phone Insured Name Patient Relati onship to Insured Coverage Start Date Coverage End Date [facility] [address] [facility] [id number] RONNI BRUNO self
--- OUTSIDE RECORDS SUMMARY | 2021-07-30 20:07 | CCD ---
Author Author [facility] Organization [facility] Address Unknown Phone Unavailable Care Team Providers Care Offender Job Retention Specialist Name Role Phone Hermelinda Ravi Unavailable PROBLEMS Type Condition ICD9-CM Code [id number] Code Onset Dates Condition S tatus W/U Status Risk SNOMED Code Notes Problem Supervision of other normal Z34.80 Ac tive confirm [id number] Problem 11 weeks gestation of Z3A.11 Active confi rmed 75415177 Problem Sebaceous cyst L72.3 Active confirmed 24847 3000 Problem Other elevated white blood cell (WBC) count D72.82 8 Active confirmed 396384738 Problem Migraine without aura and without status migrain osus, not intractable G43.009 Active confirmed 147446945 Problem Obesity complicating in third trimester O99.213 Active confirmed ALLERGIES Allergen (clinical drug ingredient) Drug/Non Drug Allergy do cumented on EMR Reaction Allergy Type Onset Date Status Latex latex vaginal iritation Non Drug Allergy A ctive ENCOUNTERS from 1993 to 2021-05-19 Encounter Location Date Provider Diagnosis [facility] [phone] [place] [address] May, Hermelinda Ravi Impaired glucose in , antepartum O99.810 IMMUNIZATIONS Vaccine Route Administration Date Status TDAP [...] Information RESULTS No Results REASON FOR VISIT failed glucose MEDICAL (GENERAL) HISTORY Type Description Date Medical [...] Treatment Notes Treatm ent Clinical Notes May, Impaired glucose in , antepartum (ICD-1 0 - O99.810) PLAN OF TREATMENT Medication Medication Name Sig [...] MG 1 tablet Orally Once a day Treatment Notes Test Name Order Date Glucose TORREY 3 HR Gestational 2021-05-19 Next Appt Details Provider Name:Elisa Andre, 2021-06-02 09:00:00 AM, [address] [place] [address] , [place], [address], Provider Name:Chiara Leon, 2021-06-16 0 2:00:00 PM, [address] [place] [address] , [place], [address], Insurance Providers Payer Name Payer Address Payer Phone Insured Name Patient Relati onship to Insured Coverage Start Date Coverage End Date [facility] [address] [facility] [phone] RONNI BRUNO self
--- OUTSIDE RECORDS SUMMARY | 2021-07-30 20:07 | CCD ---
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 Active conf irmed 03448896 Problem Other elevated white blood cell (WBC) count D72.82 8 Active confirmed 750238302 Problem Migraine without aura and without status migrain osus, not intractable G43.009 Active confirmed 649769805 Problem Obesity complicating in third trimester O99.213 Active confirmed Problem Supervision of other normal Z34.80 Ac tive confirm 212892711 ALLERGIES Allergen (clinical drug ingredient) Drug/Non Drug Allergy do cumented on EMR Reaction Allergy Type Onset Date Status Latex latex vaginal iritation Non Drug Allergy A ctive ENCOUNTERS from 1993 to 2021-06-22 Encounter Location Date Provider Diagnosis [facility] [address] [facility] [phone] [place] [address] Jun, Hermelinda Ravi Nausea/vomiting in p regnancy O21.9 IMMUNIZATIONS Vaccine Route Administration Date Status TDAP [...] Notes Start Da te End Date Status Multivital Not-Taking Ondansetron 4 MG 1 tablet on the tongue and a llow to dissolve Orally Once a day as needed for 30 day(s) Not-Taki ng Cyclobenzaprine HCl 10 MG 1 tablet as needed Orally Th ree times a day for 15 days Jan, Not-Taking Amoxicillin-Pot Clavulanate 875-125 MG TAKE 1 TABLET B Y MOUTH TWO TIMES A DAY Oral for 10 Not-Taking Proctofoam HC 1-1 % 1 application Externally Thr ee times a day as needed for 30 days Mar, Not-Taking Magnesium 250 MG 1 tablet with a meal Orally Once a day for 30 day(s) Active predniSONE 20 MG 1 tablet Orally Once a day Not-Taking Meloxicam 15 MG 1 tablet Orally Once a day for 30 day(s) 0 Jan, Not-Taking Reglan 5 MG 1 tablet before meals orally every 6 eron rs as needed for 30 day(s) Dec, Active Proctozone-HC 2.5 % 1 application Externally to hemorrhoids Twic e a day May, Active Topiramate 50 MG 1 tablet with 25mg Orally 75mg dose total- Artie y Apr, Not-Taking Meloxicam 7.5 MG 1 tablet Orally Once a day Not-Taking Ammonium Lactate 12 % 1 application Externally onc e a day to arms and thighs after shower for 30 days Dec, Active Riboflavin 100 MG 1 tablet Orally Once a day for 30 day(s) Not-Taking Vitamins - (Dis) 1 tablet Orally Once a day Active Tri-Sprintec 0.18/0.215/0.25 MG-35 MCG 1 tablet Orally Once a da y for 90 days Not-Taking Stool Softener 100 MG 1 capsule Orally twice per day for 30 day( s) May, Active Ondansetron HCl 4 MG 1 tablet as needed for nause a Orally Once a day for 30 day(s) Active Minoxidil 5 % 1 ml to affected area Externally Twice a day for 30 day (s) Not-Taking PROCEDURES No Information RESULTS No Results REASON FOR VISIT New Refill Request MEDICAL (GENERAL) HISTORY Type Description Date Medical [...] Treatment Notes Treatm ent Clinical Notes Jun, Nausea/vomiting in (ICD-10 - O21.9) PLAN OF TREATMENT Medication Medication Name Sig Start Date Stop Date Ondansetron HCl 4 MG 1 tablet as needed for nause a Orally Once a day for 30 day(s) Next Appt Details Provider Name:Nash Munoz, 2021-06-28 02:45:00 PM, [address] [facility], , [place], [address], Insurance Providers Payer Name Payer Address Payer Phone Insured Name Patient Relati onship to Insured Coverage Start Date Coverage End Date [facility] [address] [facility] [id number] RONNI BRUNO self
[2021-07-30] MEDS ORDERED: OXYTOCIN DRIP 30 UNITS in IV 1 EA IV SCH (20:15)
[2021-07-30] MEDS ORDERED: LR 1,000 ML IV SCH (20:15)
--- NOTE | 2021-07-30 20:26 | HPEPDOC ---
Obstetrical History & Physical General Date of Admission Jul 30, 2021 at 20:03 History of Present Illness 26 yo at 39 1/7 weeks by 7 week ultrasound (EDC=08/05/2021) presents to [facility] with lower abdominal cramping all day. It became more uncomfortable. She had a small amount of vaginal bleeding. She has had a prior section, but desires TOLAC. She is scheduled for induction on 07/31/2021. Information Provided By: Patient Age: 26 : 2 Term: 1 Pre-term: 0 Abortions: 0 Livin Care Care: Good Care Dating Final EDC: Aug 05, 2021 Final EDC by: 1st trimester (US) Past Medical History Past Obstetrical History : Past Obstetrical History: Multigravida Past Medical History Medical History Ob: 04/2020: section 9 lb 9 0z. male. arrest of descent med hx: Migraine with aura surgery: section tonsillectomy wisdom teeth Social History Marital Status: Family situation: Spouse/partner home Psychosocial History: No pertinent psych hx * Smoker: non-smoker Medications Scheduled Metoclopramide HCl (Reglan) 10 Mg Tablet, 10 MG PO QID before food and bedtime No122/Iron/Folic Acid ( Multi Tablet) 1 Each Tablet, 1 TAB PO DAILY Scheduled PRN Ondansetron (Ondansetron Odt) 4 Mg Tab.rapdis, 4 MG PO Q6-8HP PRN for nausea/vomiting Physical Examination Physical Examination GENERAL: Alert and oriented times three. BREAST: . ABDOMEN: Gravid and non-tender to touch. FETUS: Is vertex (VTX) by sterile vaginal examination (SVE), fetus is vertex (VTX) by Phan. HEART RATE: Regular rate and rhythm. LUNGS: Clear to auscultation (CTA). EXTREMITIES: No edema. No clonus. Deep tendon reflexes (DTRs) + . Vital Signs/I&O Vital Signs Date Time Temp Pulse Resp B/P (MAP) Pulse Ox O2 Delivery O2 Flow Rate FiO2 07/30/21 17:11 98.4 82 18 131/84 (100) Laboratory Data 24H LABS Laboratory Tests 2 07/30/21 20:10: Serology Scanned Report Hepatitis B Testing Pertinent Laboratoy Data Blood Type: A+ Group B Streptococcus: Negative Vaginal Examination Dilation: 2cm Effacement: 70% Station: -2 Cervical Consistency: Medium Cervical Position: Posterior Presentation: Cephalic presentation Assessment Variability: Moderate Accelerations: Positive Decelerations: None Tocometer Contractions: Yes Frequency: irregular, every 1-5 min. Strength: palpated as mild Assessment/Plan Assessment Pt is a 26-year-old (G)2 para (P)1001 at 39+1 weeks by 7-week ultrasound presents to Labor and Delivery for induction, TOLAC. Plan Admit and orient. Copy Machine Operator and consent. Group B Streptococcus (GBS) negative. Labs and intravenous (IV) per unit protocol. Counseled on Pitocin and induction of labor (IOL). Risks of TOLAC discussed, including risk of uterine rupture BEN MURRIETA MD Jul 30, 2021 20:26
[2021-07-30 21:37] LABS: HEMATOCRIT 33.9 % (36.0-47.0); HEMOGLOBIN 11.3 g/dl (12.0-15.5); MEAN CORPUSCULAR HGB CONC 33.3 g/dl (32.0-36.5); MEAN CORPUSCULAR VOLUME 93.1 fl (80.0-96.0); PLATELET COUNT, AUTOMATED 273 10^3/uL (150-450); RED BLOOD COUNT 3.64 10^6/uL (4.00-5.40); WHITE BLOOD COUNT 14.4 10^3/uL (4.0-10.0)
[2021-07-31] VITALS (24 sets, daily range): BP systolic 98–138; BP diastolic 54–85
[2021-07-31] MEDS ORDERED: FENTANYL 2MCG/ML ROPIVACAINE 0.2% IN 0.9% NACL 100ML IVBAG As Ordered ONE (02:27)
[2021-07-31] MEDS ORDERED: REFRIGERATOR IV KEYS XX PRN (03:20)
[2021-07-31] MEDS ORDERED: FENTANYL/ROPIVACAINE/NACL BAG 100 ML EPIDURAL SCH (03:20)
[2021-07-31] MEDS ORDERED: diphenhydrAMINE 50MG/ML VIAL (J1200) IV PRN (03:20)
[2021-07-31] MEDS ORDERED: EPIDURAL/PCA KEYS XX PRN (03:20)
[2021-07-31] MEDS ORDERED: NALOXONE INJ 0.4MG/1ML VIAL (J2310 PER 1MG) IV PRN (03:20)
[2021-07-31] MEDS ORDERED: EPIDURAL COMMENT XX SCH (03:20)
[2021-07-31] MEDS ORDERED: ONDANSETRON 4MG/2ML VIAL IV PRN (03:20)
[2021-07-31] MEDS ORDERED: LACTATED RINGER'S 1000 ML IV PRN (03:20)
[2021-07-31] MEDS ORDERED: ePHEDrine SULFATE 25 MG/5 ML(5MG/ML) SYRINGE IV PRN (03:20)
[2021-07-31] MEDS ORDERED: LIDOCAINE 1% MDV 20ML VIAL As Ordered ONE (05:52)
[2021-07-31] MEDS ORDERED: IBUPROFEN 600MG TAB PO PRN (06:35)
[2021-07-31] MEDS ORDERED: ACETAMINOPHEN TAB 650MG DOSE (2X325MG) PO PRN (06:35)
[2021-07-31] MEDS ORDERED: MEASLES,MUMPS,RUBELLA VACCINE INJ (MMR-II) (90707) SC SCH (06:35)
[2021-07-31] MEDS ORDERED: OXYTOCIN DRIP 30 UNITS in IV 1 EA IV ONE (06:35)
[2021-07-31] MEDS ORDERED: RHOGAM 300 MCG (1500 IU) INJ (J2790) IM SCH (06:35)
[2021-07-31] MEDS ORDERED: DIBUCAINE 1% OINTMENT 30GM TOP PRN (06:35)
[2021-07-31] MEDS ORDERED: LIDOCAINE 1% MDV 20ML VIAL INFIL ONE (06:35)
[2021-07-31] MEDS ORDERED: METHYLERGONOVINE MALEATE 0.2 MG TAB PO PRN (06:35)
--- NOTE | 2021-07-31 06:38 | DNPDOC ---
[facility] Delivery Note Delivery Note DATE OF DELIVERY: July 31, 2021 PREDELIVERY DIAGNOSIS: 39-2/7 weeks' gestation, induction, TOLAC POST DELIVERY DIAGNOSIS: Delivered. PROCEDURE: Spontaneous vaginal delivery, successful . DIRECTOR OF STRATEGY & MOBILE: Dr. Ben Murrieta MD ANESTHESIA: Epidural. ESTIMATED BLOOD LOSS: 300 mL. FINDINGS: 8 pound 4 ounce male infant, Score 8/9. DELIVERY SUMMARY: Patient is a 26-year-old 2 now para 2 who was admitted to labor and delivery for induction of labor. She has had a prior section. She is willing to undergo trial of labor after section (TOLAC). She received IV Pitocin. She progressed to become fully dilated. After 20 minutes second stage of labor she had spontaneous vaginal delivery of an 8 pound 4 ounce male infant. No nuchal cord. The shoulders delivered with ease. The infant was handed to the mother. The cord was then clamped and cut. The placenta delivered spontaneously and appeared to be intact. The patient received IV Pitocin immediately after delivery of the placenta. A second-degree perineal laceration repaired with 2-0 chromic under local anesthesia in the usual fashion. Sponge and needle counts were correct. BEN MURRIETA MD Jul 31, 2021 06:38
[2021-07-31] MEDS: PRENATAL VITAMINS CHEWABLE TABLET PO SCH (08:22)
[2021-07-31] MEDS: ACETAMINOPHEN 500 MG TAB PO PRN ×3 (08:36→20:41)
[2021-07-31] MEDS: IBUPROFEN 800 MG TAB PO PRN ×2 (10:47→18:45)
[2021-07-31] MEDS: ANUSOL HC CREAM 30GM TOP SCH (20:35)
[2021-07-31] MEDS: DOCUSATE SODIUM 100MG CAPSULE PO PRN (20:40)
[2021-08-01] MEDS: IBUPROFEN 800 MG TAB PO PRN ×2 (03:45→14:04)
[2021-08-01 06:00] VITALS: BP 93/50
[2021-08-01] MEDS ORDERED: ACET-683 PO (07:41)
[2021-08-01] MEDS ORDERED: IBUP80TA PO (07:41)
[2021-08-01] MEDS: ANUSOL HC CREAM 30GM TOP SCH (09:00)
[2021-08-01] MEDS: PRENATAL VITAMINS CHEWABLE TABLET PO SCH (09:00)
[2021-08-01] MEDS: ACETAMINOPHEN 500 MG TAB PO PRN (09:23)
[2021-08-01] MEDS: DOCUSATE SODIUM 100MG CAPSULE PO PRN (14:05)
== END 2021-08-01 15:50 | disposition home or self-care (01) | DRG 560 ==
LOC: M LDO 16:43 → M LDI 20:03 → M OBS 07-31 10:33
PROVIDERS: ADMIT Specialist; ATTEND Specialist
PROC: 3E033VJ Introduction of Other Hormone into Peripheral Vein, Percutaneous Approach (ICD-10-PCS; 2021-07-30)
PROC: 10E0XZZ Delivery of Products of Conception, External Approach (ICD-10-PCS; principal; 2021-07-31)
PROC: 0KQM0ZZ Repair Perineum Muscle, Open Approach (ICD-10-PCS; 2021-07-31)
DX: O34.211 Maternal care for low transverse scar from previous cesarean delivery (principal); O70.1 Second degree perineal laceration during delivery; Z37.0 Single live birth; Z3A.39 39 weeks gestation of pregnancy

== ENCOUNTER → 2021-12-12 | Outpatient (REF) | payer OTHER ==
[~2021-12-12] MED LIST changes: +ACET-683 PO
[2021-12-12 19:45] LABS: APPEARANCE, URINE CLEAR (CLEAR); BACTERIA, URINE AUTO NEGATIVE (NEGATIVE); BILIRUBIN, URINE AUTO NEGATIVE (NEGATIVE); BLOOD, URINE BLOOD NEGATIVE (NEGATIVE); COLOR, URINE STRAW (YELLOW); GLUCOSE, URINE (UA) AUTO NEGATIVE (NEGATIVE); KETONE, URINE AUTO NEGATIVE (NEGATIVE); LEUKOCYTE ESTERASE, URINE AUTO NEGATIVE (NEGATIVE); NITRITE, URINE AUTO NEGATIVE (NEGATIVE); PROTEIN, URINE AUTO NEGATIVE (NEGATIVE); RBC, URINE AUTO 0 /HPF (0-3); SPECIFIC GRAVITY URINE AUTO 1.004 (1.002-1.035); SQUAMOUS EPITHELIAL CELL UR AU 0 /HPF (0-6); UROBILINOGEN, URINE AUTO 0.2 mg/dL (0.0-2.0); WBC, URINE AUTO 0 /HPF (0-3)
== END ==
LOC: M PLALAB 14:10
PROVIDERS: ATTEND Advanced Practice Midwife
DX: R10.2 Pelvic and perineal pain (principal)

== ENCOUNTER → 2022-03-10 | Outpatient (CLI) | payer OTHER | LOC: M WUC 13:02 | PROVIDERS: ATTEND Physician Assistant | DX: S93.411A Sprain of calcaneofibular ligament of right ankle, initial encounter (principal); X58.XXXA Exposure to other specified factors, initial encounter; Y92.89 Other specified places as the place of occurrence of the external cause; Y93.9 Activity, unspecified; Y99.9 Unspecified external cause status ==

== ENCOUNTER → 2022-06-06 | Outpatient (CLI) | payer OTHER | LOC: M WHC 11:26 | PROVIDERS: ATTEND Physician Assistant | DX: N83.209 Unspecified ovarian cyst, unspecified side (principal) ==

== ENCOUNTER → 2022-06-06 | Outpatient (CLI) | payer OTHER | LOC: M WHC 11:25 | PROVIDERS: ATTEND Specialist | DX: N83.209 Unspecified ovarian cyst, unspecified side (principal) ==

== ENCOUNTER → 2022-06-26 | Outpatient (CLI) | payer OTHER | LOC: M WHC 07:49 | PROVIDERS: ATTEND Physician Assistant | DX: R22.31 Localized swelling, mass and lump, right upper limb (principal) ==

== ENCOUNTER → 2022-08-07 | Outpatient (CLI) | payer OTHER ==
[~2022-08-07] MED LIST changes: +ISOVUE-370 76% 100ML VIAL As Ordered ONE
== END ==
LOC: M RAD 09:35
PROVIDERS: ATTEND Specialist
DX: R10.2 Pelvic and perineal pain (principal)
CPT/HCPCS: 74177; Q9967

== ENCOUNTER → 2022-08-09 | Outpatient (CLI) | payer OTHER ==
[~2022-08-09] MED LIST changes: -ISOVUE-370 76% 100ML VIAL As Ordered ONE
[2022-08-09 14:11] LABS: BASO # 0.1 10^3/uL (0.0-0.2); BASO % 0.7 % (0.0-1.0); EOS # 0.2 10^3/uL (0.0-0.5); EOS % 2.3 % (0.0-3.0); HEMATOCRIT 41.2 % (36.0-47.0); HEMOGLOBIN 13.4 g/dl (12.0-15.5); LYMPH # 3.1 10^3/uL (1.5-5.0); LYMPH % 35.7 % (24.0-44.0); MEAN CORPUSCULAR HEMOGLOBIN 30.5 pg (27.0-33.0); MEAN CORPUSCULAR HGB CONC 32.5 g/dl (32.0-36.5); MEAN CORPUSCULAR VOLUME 93.8 fl (80.0-96.0); MONO # 0.9 10^3/uL (0.0-0.8); NEUTROPHILS # 4.4 10^3/uL (1.5-8.5); PLATELET COUNT, AUTOMATED 345 10^3/uL (150-450); RED BLOOD COUNT 4.39 10^6/uL (4.00-5.40); WHITE BLOOD COUNT 8.7 10^3/uL (4.0-10.0)
[2022-08-09 15:28] LABS: HCG, SERUM QUALITATIVE NEGATIVE (NEGATIVE)
[2022-08-09 15:46] LABS: ALBUMIN 3.7 GM/DL (3.2-5.2); ALT/SGPT 21 U/L (12-78); BILIRUBIN,TOTAL 0.4 MG/DL (0.2-1.0); BLOOD UREA NITROGEN 13 MG/DL (7-18); CALCIUM LEVEL 8.9 MG/DL (8.5-10.1); CARBON DIOXIDE LEVEL 27 MEQ/L (21-32); CHLORIDE LEVEL 104 MEQ/L (98-107); CREATININE FOR GFR 0.71 MG/DL (0.55-1.30); GLOMERULAR FILTRATION RATE > 60.0 (>60); GLUCOSE, FASTING 98 MG/DL (70-100); IRON (FE) 124 UG/DL (50-170); PERCENT SATURATION 34.4 % (13.2-45.0); POTASSIUM SERUM 4.4 MEQ/L (3.5-5.1); SODIUM LEVEL 137 MEQ/L (136-145); TOTAL IRON BINDING CAPACITY 360 UG/DL (250-450); TOTAL PROTEIN 7.5 GM/DL (6.4-8.2)
== END ==
LOC: M PLALAB 11:26
PROVIDERS: ATTEND Physician Assistant
DX: R11.0 Nausea (principal)

== ENCOUNTER → 2023-08-18 | Outpatient (REF) | payer OTHER | LOC: M WUC 17:42 | PROVIDERS: ATTEND Student in an Organized Health Care Education/Training Program | DX: R30.0 Dysuria (principal) ==

== ENCOUNTER → 2023-08-22 | Outpatient (CLI) | payer OTHER | LOC: M RAD 10:47 | PROVIDERS: ATTEND Student in an Organized Health Care Education/Training Program | DX: R10.32 Left lower quadrant pain (principal) ==

== ENCOUNTER → 2023-09-28 | Outpatient (CLI) | payer OTHER ==
[2023-09-28 14:13] LABS: HEMATOCRIT 38.7 % (36.0-47.0); MEAN CORPUSCULAR HEMOGLOBIN 30.8 pg (27.0-33.0); MEAN CORPUSCULAR HGB CONC 33.6 g/dl (32.0-36.5); MEAN CORPUSCULAR VOLUME 91.7 fl (80.0-96.0); PLATELET COUNT, AUTOMATED 327 10^3/uL (150-450); RED BLOOD COUNT 4.22 10^6/uL (4.00-5.40)
[2023-09-28 15:06] LABS: HIV 1&2 SCREEN NEGATIVE (NEGATIVE)
[2023-09-28 15:14] LABS: HEPATITIS C VIRUS ABY INDEX 0.07 INDEX (<0.8)
[2023-09-28 15:32] LABS: CHLAMYDIA DNA AMPLIFICATION NEGATIVE (NEGATIVE); GC DNA AMPLIFICATION NEGATIVE (NEGATIVE)
== END ==
LOC: M PLALAB 10:38
PROVIDERS: ATTEND Advanced Practice Midwife
DX: O21.9 Vomiting of pregnancy, unspecified (principal); Z3A.00 Weeks of gestation of pregnancy not specified

== ENCOUNTER → 2023-11-26 | Outpatient (CLI) | payer OTHER | LOC: M WHC 07:57 | PROVIDERS: ATTEND Specialist | DX: Z34.82 Encounter for supervision of other normal pregnancy, second trimester (principal); Z3A.18 18 weeks gestation of pregnancy ==

== ENCOUNTER → 2023-12-14 | Outpatient (CLI) | payer OTHER | LOC: M WHC 08:12 | PROVIDERS: ATTEND Specialist | DX: Z34.82 Encounter for supervision of other normal pregnancy, second trimester (principal); Z3A.21 21 weeks gestation of pregnancy ==

== ENCOUNTER → 2024-01-28 | Outpatient (CLI) | payer OTHER, SELFPAY ==
[2024-01-28 13:20] LABS: HEMATOCRIT 35.3 % (36.0-47.0); HEMOGLOBIN 11.8 g/dl (12.0-15.5); MEAN CORPUSCULAR HEMOGLOBIN 31.3 pg (27.0-33.0); MEAN CORPUSCULAR HGB CONC 33.4 g/dl (32.0-36.5); MEAN CORPUSCULAR VOLUME 93.6 fl (80.0-96.0); PLATELET COUNT, AUTOMATED 324 10^3/uL (150-450); RED BLOOD COUNT 3.77 10^6/uL (4.00-5.40); WHITE BLOOD COUNT 15.4 10^3/uL (4.0-10.0)
[2024-01-28 14:32] LABS: GC DNA AMPLIFICATION NEGATIVE (NEGATIVE)
== END ==
LOC: M PLALAB 10:39
PROVIDERS: ATTEND Specialist
DX: Z34.82 Encounter for supervision of other normal pregnancy, second trimester (principal)

== ENCOUNTER → 2024-03-28 | Outpatient (REF) | payer OTHER ==
[~2024-03-28] MED LIST changes: +ONDA-282 PO; -ONDA4TAB6 PO
== END ==
LOC: M SFHCWAGY 10:03
PROVIDERS: ATTEND Obstetrics & Gynecology
DX: Z3A.36 36 weeks gestation of pregnancy (principal)

== ENCOUNTER → 2024-07-18 | Outpatient (REF) | payer OTHER ==
[~2024-07-18] MED LIST changes: +COLA100C5 PO; +DOXY1TAB59 PO; +METO5TAB2 PO; +ONDA-83 PO
[2024-07-22 14:02] LABS: HPV APTIMA Not Detected (Not Detected)
== END ==
LOC: M PLALAB 14:02
PROVIDERS: ATTEND Advanced Practice Midwife
DX: Z01.419 Encounter for gynecological examination (general) (routine) without abnormal findings (principal); Z12.4 Encounter for screening for malignant neoplasm of cervix; Z11.51 Encounter for screening for human papillomavirus (HPV)

== ENCOUNTER → 2024-08-26 | Outpatient (CLI) | payer OTHER ==
[2024-08-26 18:33] LABS: BASO # 0.1 10^3/uL (0.0-0.2); BASO % 1.2 % (0.0-1.0); EOS # 0.3 10^3/uL (0.0-0.5); EOS % 3.2 % (0.0-3.0); HEMATOCRIT 40.9 % (36.0-47.0); HEMOGLOBIN 13.3 g/dl (12.0-15.5); LYMPH # 3.9 10^3/uL (1.5-5.0); LYMPH % 44.3 % (24.0-44.0); MEAN CORPUSCULAR HEMOGLOBIN 29.4 pg (27.0-33.0); MEAN CORPUSCULAR HGB CONC 32.5 g/dl (32.0-36.5); MEAN CORPUSCULAR VOLUME 90.3 fl (80.0-96.0); MONO # 0.9 10^3/uL (0.0-0.8); MONO % 10.4 % (2.0-8.0); NEUTROPHILS # 3.5 10^3/uL (1.5-8.5); NEUTROPHILS % 40.7 % (36.0-66.0); PLATELET COUNT, AUTOMATED 404 10^3/uL (150-450); RED BLOOD COUNT 4.53 10^6/uL (4.00-5.40); WHITE BLOOD COUNT 8.7 10^3/uL (4.0-10.0)
[2024-08-26 19:02] LABS: ALBUMIN 3.7 G/DL (3.2-5.2); ALKALINE PHOSPHATASE 93 U/L (35-104); ALT/SGPT 16 U/L (7.0-40); AST/SGOT 9 U/L (<34); BILIRUBIN,TOTAL 0.3 MG/DL (0.3-1.2); BLOOD UREA NITROGEN 17 MG/DL (9-23); CALCIUM LEVEL 8.9 MG/DL (8.5-10.1); CARBON DIOXIDE LEVEL 27 MMOL/L (20-31); CHLORIDE LEVEL 105 MMOL/L (98-107); CHOLESTEROL LEVEL 248 MG/DL (<200); CHOLESTEROL RISK RATIO 4.37 (<5); CREATININE FOR GFR 0.76 MG/DL (0.55-1.30); GLOMERULAR FILTRATION RATE > 60.0 (>60); GLUCOSE, FASTING 71 MG/DL (60-100); HDL CHOLESTEROL 56.7 MG/DL (>40); IRON (FE) 151 UG/DL (50-170); LDL CHOLESTEROL 132.3 MG/DL (<100); NON-HDL-C 191.3 MG/DL; PERCENT SATURATION 40.6 % (13.2-45.0); POTASSIUM SERUM 4.1 MMOL/L (3.5-5.1); SODIUM LEVEL 138 MMOL/L (136-145); TOTAL IRON BINDING CAPACITY 372 UG/DL (250-425); TOTAL PROTEIN 7.5 G/DL (5.7-8.2); TRIGLYCERIDES LEVEL 295 MG/DL (<150)
[2024-08-26 19:03] LABS: THYROID STIMULATING HORMONE 1.469 uIU/ML (0.55-4.78)
[2024-08-26 19:04] LABS: FREE T4 1.07 NG/DL (0.89-1.76); VITAMIN B12 LEVEL 333 PG/ML (211-911)
[2024-08-26 19:34] LABS: HEMOGLOBIN A1c 5.2 % (4.0-6.0)
== END ==
LOC: M PLALAB 15:32
PROVIDERS: ATTEND Student in an Organized Health Care Education/Training Program
DX: R22.0 Localized swelling, mass and lump, head (principal); R42 Dizziness and giddiness

== ENCOUNTER → 2024-11-10 | Outpatient (CLI) | payer OTHER | LOC: M RAD 15:30 | PROVIDERS: ATTEND Advanced Practice Midwife | DX: R10.2 Pelvic and perineal pain (principal); Z97.5 Presence of (intrauterine) contraceptive device ==

== ENCOUNTER → 2024-11-21 | Outpatient (CLI) | payer OTHER | LOC: M WHC 09:39 | PROVIDERS: ATTEND Student in an Organized Health Care Education/Training Program | DX: R22.0 Localized swelling, mass and lump, head (principal) ==

== ENCOUNTER → 2025-04-23 | Outpatient (REF) | payer OTHER, MEDICAID ==
[~2025-04-23] MED LIST changes: +TOPI-14 PO; -TOPI200T7 PO
== END ==
LOC: M SFHCDERM 12:54
PROVIDERS: ATTEND Nurse Practitioner Family
DX: D18.01 Hemangioma of skin and subcutaneous tissue (principal)